=== PATIENT | female | born 1945 | race Caucasian/White ===

== ENCOUNTER 2020-10-04 14:34 | Inpatient (IN) | payer MEDICARE, BC ==
[2020-10-04] MEDS ORDERED: TYLENOL 325 MG PO ONE (14:42)
[2020-10-04] MEDS ORDERED: Sodium Chloride 0.9% 1000 ML 1,000 ML IV STA (14:42)
[2020-10-04] MEDS ORDERED: Reglan 10 MG/2 ML IV ONE (14:42)
[2020-10-04] MEDS ORDERED: BENADRYL 50 MG/ML IV ONE (14:42)
[2020-10-04] MEDS ORDERED: BENADRYL 50 MG/ML ONE (14:49)
[2020-10-04] MEDS ORDERED: TYLENOL 325 MG ONE (14:49)
[2020-10-04] MEDS ORDERED: Reglan 10 MG/2 ML ONE (14:49)
[2020-10-04] MEDS ORDERED: Sodium Chloride 0.9% 1000 ML 0 ML ONE (14:50)
[2020-10-04 15:01] LABS: Absolute Neutrophil Ct (ANC) 2.69 (1.4-6.9); BASOPHIL % 0.3 % (0.0-0.4); Basophil (Absolute #) 0.01 (0-0.4); Eosinophil % 0.5 % (0.00-5.0); Eosinophil (Absolute #) 0.02 (0-0.5); Hematocrit 28.4 % (35-47); Hemoglobin 9.9 gm/dl (12.0-16.0); Lymphocyte (Absolute #) 0.78 (1.0-4.6); Lymphocytes % 20.7 % (24.0-44.0); Mean Cell Volume 86.6 fl (78-100); Mean Corpuscular Hemoglobin 30.2 pg (26-32); Mean Corpuscular Hgb Concent. 34.9 g/dl (32-36); Mean Platelet Volume 9.7 fl (7.5-11.0); Monocyte (Absolute #) 0.26 (0.0-1.3); Monocytes % 6.9 % (0.0-12.0); Neutrophil % 71.6 % (36.0-66.0); Platelet Count 108 K/mm3 (150-450); Red Blood Count 3.28 M/mm3 (4.1-5.4); Red Cell Distribution Width 13.3 % (11.5-14.0); White Blood Count 3.8 K/mm3 (4.0-10.5)
[2020-10-04 15:13] LABS: ALBUMIN 2.8 g/dL (3.5-5.0); ANION GAP 4.7 MEQ/L (5-15); Calcium 8.5 mg/dL (8.4-10.2); Creatinine 1 1.09 mg/dL (0.52-1.04); Potassium 4.1 mmol/L (3.5-5.1); Total Protein 5.6 g/dL (6.3-8.2)
--- NOTE | 2020-10-04 15:41 | ERPHSYRPT ---
- History of Present Illness Time Seen by Provider: 10/04/20 14:45 Patient Subjective Stated Complaint: Pt c/o of having head aches for about 4 weeks and has been getting confusion, pt states that she has cirrohsis of the l iver and last took lactulose last week "Maybe". Triage Nursing Assessment: Pt brought by EMS, pt is confused and unsure why she is here, pt was confused and states that she has been having severe headaches and feels nauseaous, hypertensive, rates head pain as 8-9/10, no difficulties with strength Physician History: 75 years old female with history of intermittent headaches, cirrhosis not taking her lactulose for almost 1 week is brought in the ER with chief complaint of headache and confusion. Patient reports she has been having headache for the last 4 weeks with progressive worsening, comes and goes and today was not going away, involves the entire head, sharp in nature 8/10 intensity without any significant aggravating or relieving factors, associated with nausea but no vomiting. Patient also reports she is confused and does not know why she is in here but could be because of her elevated ammonia level as she has not taken her lactulose and last 1 week. Denies any abdominal pain otherwise. No numbness tingling or focal weakness. No fever or chills reported. Denies any sick contact. Timing/Duration: week(s), intermittent, worse Severity: moderate Modifying Factors: Improves With: rest Associated Symptoms: nausea, headaches, No vomiting, No abdominal pain, No shortness of breath, No chest pain, No fever, No loss of appetite, No syncope, No seizure Allergies/Adverse Reactions: No Known Drug Allergies Allergy (Verified 10/04/20 14:59) Home Medications: Aspirin EC 81 mg [Ecotrin 81 mg] 81 mg PO DAILY 10/04/20 [History] Clopidogrel Bisulfate 75 mg [PLAVIX 75 MG Tablet] 75 mg PO DAILY 10/04/20 [History] Duloxetine HCl [Cymbalta] 60 mg PO DAILY 10/04/20 [History] Ergocalciferol (Vitamin D2) [Vitamin D2] 50,000 unit PO Q7D 10/04/20 [History] Furosemide 20 mg [Lasix 20 mg] 20 mg PO BID 10/04/20 [History] Hydroxyzine HCl 10 mg PO BID 10/04/20 [History] Irbesartan 150 mg [Avapro 150 MG] 150 mg PO BID 10/04/20 [History] Mirabegron [Myrbetriq] 50 mg PO DAILY 10/04/20 [History] Nebivolol HCl [Bystolic] 20 mg PO BID 10/04/20 [History] Nitroglycerin 0.4 mg (Ed) [Nitrostat 0.4 MG (ED)] 0.4 mg SL UD 10/04/20 [History] Rifaximin [Xifaxan] 550 mg PO BID 10/04/20 [History] Spironolactone 25 mg PO DAILY 10/04/20 [History] carisoprodoL [Carisoprodol] 350 mg PO BID 10/04/20 [History] carvediloL [Carvedilol] 25 mg PO BID 10/04/20 [History] Hx Tetanus, Diphtheria Vaccination/Date Given: Yes (2010) Hx Influenza Vaccination/Date Given: Yes () Hx Pneumococcal Vaccination/Date Given: Yes (2010) Travel Risk - International Travel Have you traveled outside of the country in past 3 weeks: No - Coronavirus Screening Are you exhibiting any of the following symptoms?: No Close contact with a COVID-19 positive Pt in past 14-21 Days: No - Review of Systems Constitutional: Fatigue, Weakness Eyes: No Symptoms Ears, Nose, & Throat: No Symptoms Respiratory: No Symptoms Cardiac: No Symptoms Abdominal/Gastrointestinal: Nausea Genitourinary Symptoms: No Symptoms Musculoskeletal: No Symptoms Skin: No Symptoms Neurological: Headache Psychological: No Symptoms Endocrine: No Symptoms Hematologic/Lymphatic: No Symptoms Immunological/Allergic: No Symptoms - Past Medical History Pertinent Past Medical History: Yes (cirrhosis) Cardiac History: High Cholesterol, Hypertension Endocrine Medical History: Diabetes Type II, Hypothyroidism Musculoskeletal History: Arthritis GI Medical History: Cirrhosis Psycho-Social History: Depression - Past Surgical History Past Surgical History: Yes Gastrointestinal: Cholecystectomy Female Surgical History: Hysterectomy Other Surgical History: bladder tuck - Social History Smoking Status: Never smoker Exposure to second hand smoke: No Drug Use: none Patient Lives Alone: No - Nursing Vital Signs Nursing Vital Signs: Initial Vital Signs Temperature 97.5 F 10/04/20 14:42 Pulse Rate 63 10/04/20 14:42 Respiratory Rate 14 10/04/20 14:42 Blood Pressure 172/73 10/04/20 14:42 O2 Sat by Pulse Oximetry 98 10/04/20 14:42 Pain Scale Pain Intensity 6 - Physical Exam General Appearance: no apparent distress, alert Eye Exam: PERRL/EOMI, eyes nml inspection Ears, Nose, Throat Exam: normal ENT inspection, TMs normal, pharynx normal Neck Exam: normal inspection, non-tender, supple, full range of motion Respiratory Exam: normal breath sounds, lungs clear Cardiovascular Exam: regular rate/rhythm, normal heart sounds Gastrointestinal/Abdomen Exam: soft, normal bowel sounds, No tenderness Back Exam: normal inspection, normal range of motion Extremity Exam: normal inspection, normal range of motion Neurologic Exam: alert, oriented x 3, cooperative, financial solutions advisor II-XII nml as tested, nml cerebellar function, sensation nml, No normal mood/affect, No motor deficits, No sensory deficit, No facial droop, No slurred speech Skin Exam: normal color SpO2 Interpretation: normal SpO2: 98 O2 Delivery: Room Air (Adenopathy) - Course EKG Interpreted by Me: RATE (62), Sinus Rhythm, NORMAL AXIS, NORMAL INTERVALS, NORMAL QRS, Q-wave Ordered Tests: Active Orders 24 hr Category Date Time Status EKG-ER Only STAT Care 10/04/20 14:41 Active IV Insertion STAT Care 10/04/20 14:41 Active IV Insertion STAT Care 10/04/20 14:42 Active NPO (ED) STAT Care 10/04/20 14:41 Active CHEST 1 VIEW (PORTABLE) Stat Exams 10/04/20 15:46 Taken HEAD WITHOUT CONTRAST [CT] Stat Exams 10/04/20 14:42 Taken BLOOD CULTURE Stat Lab 10/04/20 15:10 Ordered BNP [NT PRO BNP] Stat Lab 10/04/20 14:48 Completed CBC W DIFF Stat Lab 10/04/20 14:48 Completed CMP Stat Lab 10/04/20 14:48 Completed CULTURE,URINE Stat Lab 10/04/20 17:43 Received Lactic Acid Stat Lab 10/04/20 14:41 Completed MAG [MAGNESIUM] Stat Lab 10/04/20 14:48 Completed TROPONIN Q3H Lab 10/04/20 15:10 Completed TROPONIN Q3H Lab 10/04/20 18:00 Ordered TROPONIN Q3H Lab 10/04/20 21:00 Ordered UA W/RFX UR CULTURE Stat Lab 10/04/20 17:43 Completed Transfer Order Routine Transfer 10/04/20 Ordered Medication Summary Generic Name Dose Route Start Last Admin Trade Name Sheridan PRN Reason Stop Dose Admin Ceftriaxone Sodium/Dextrose 1 g in 50 mls @ 100 mls/hr 10/04/20 18:02 Rocephin 1 Gm-D5w 50 Ml Bag IV 10/04/20 18:31 STAT STA Discontinued Medications Generic Name Dose Route Start Last Admin Trade Name Sheridan PRN Reason Stop Dose Admin Acetaminophen 975 mg 10/04/20 14:42 10/04/20 15:28 Tylenol 325 Mg PO 10/04/20 14:43 Not Given STAT ONE Acetaminophen Confirm 10/04/20 14:49 Tylenol 325 Mg Administered 10/04/20 14:50 Dose 975 mg .ROUTE .STK-MED ONE Diphenhydramine HCl 25 mg 10/04/20 14:42 10/04/20 15:37 Benadryl 50 Mg/Ml IV 10/04/20 14:43 25 mg STAT ONE Administration Diphenhydramine HCl Confirm 10/04/20 14:49 Benadryl 50 Mg/Ml Administered 10/04/20 14:50 Dose 50 mg .ROUTE .STK-MED ONE Sodium Chloride 1,000 mls @ 499 mls/hr 10/04/20 14:42 10/04/20 15:28 Sodium Chloride 0.9% 1000 Ml IV 10/04/20 16:42 Not Given .Q2H1M STA Sodium Chloride Confirm 10/04/20 14:50 Sodium Chloride 0.9% 1000 Ml Administered 10/04/20 14:51 Dose 1,000 mls @ ud .ROUTE .STK-MED ONE Metoclopramide HCl 10 mg 10/04/20 14:42 10/04/20 15:39 Reglan 10 Mg/2 Ml IV 10/04/20 14:43 10 mg STAT ONE Administration Metoclopramide HCl Confirm 10/04/20 14:49 Reglan 10 Mg/2 Ml Administered 10/04/20 14:50 Dose 10 mg .ROUTE .STK-MED ONE Lab/Rad Data: Laboratory Result Diagrams 10/04/20 14:48 12/25/20 14:48 Laboratory Results 10/04/20 10/04/20 10/04/20 Range/Units 17:43 16:00 15:10 WBC (4.0-10.5) K/mm3 RBC (4.1-5.4) M/mm3 Hgb (12.0-16.0) gm/dl Hct (35-47) % MCV (78-100) fl MCH (26-32) pg MCHC (32-36) g/dl RDW (11.5-14.0) % Plt Count (150-450) K/mm3 MPV (7.5-11.0) fl Gran % (36.0-66.0) % Eos # (Auto) (0-0.5) Absolute Lymphs (auto) (1.0-4.6) Absolute Monos (auto) (0.0-1.3) Lymphocytes % (24.0-44.0) % Monocytes % (0.0-12.0) % Eosinophils % (0.00-5.0) % Basophils % (0.0-0.4) % Absolute Granulocytes (1.4-6.9) Basophils # (0-0.4) Sodium (137-145) mmol/L Potassium (3.5-5.1) mmol/L Chloride (98-107) mmol/L Carbon Dioxide (22-30) mmol/L Anion Gap (5-15) MEQ/L BUN (7-17) mg/dL Creatinine (0.52-1.04) mg/dL Estimated GFR ML/MIN Glucose (74-106) mg/dL Lactic Acid (0.4-2.0) Calcium (8.4-10.2) mg/dL Magnesium (1.6-2.3) mg/dL Total Bilirubin (0.2-1.3) mg/dL AST (14-36) U/L ALT (0-35) U/L Alkaline Phosphatase (38-126) U/L Ammonia 12 (9-30) umol/L Troponin I < 0.012 (0.000-0.034) ng/mL NT-Pro-B Natriuret Pep (0-1800) pg/mL Serum Total Protein (6.3-8.2) g/dL Albumin (3.5-5.0) g/dL Urine Color GAETANO (YELLOW) Urine Appearance CLOUDY (CLEAR) Urine pH 5.0 (5-6) Ur Specific [place] 1.026 (1.005-1.025) Urine Protein >=500 (Negative) Urine Ketones NEGATIVE (NEGATIVE) Urine Blood MODERATE (0-5) Karl/ul Urine Nitrite POSITIVE (NEGATIVE) Urine Bilirubin NEGATIVE (NEGATIVE) Urine Urobilinogen 4 (0-1) mg/dL Ur Leukocyte Esterase TRACE (NEGATIVE) Urine WBC (Auto) 51-100 (0-5) /HPF Urine RBC (Auto) 11-15 (0-2) /HPF U Hyaline Cast (Auto) 11-25 (0-2) /LPF U Epithel Cells (Auto) RARE (FEW) /HPF Urine Bacteria (Auto) MANY (NEGATIVE) /HPF Urine Mucus (Auto) SLIGHT (NEGATIVE) /HPF Urine Culture Reflexed YES (NO) Urine Glucose 150 (NEGATIVE) mg/dL 10/04/20 10/04/20 10/04/20 Range/Units 14:48 14:48 14:48 WBC 3.8 L (4.0-10.5) K/mm3 RBC 3.28 L (4.1-5.4) M/mm3 Hgb 9.9 L (12.0-16.0) gm/dl Hct 28.4 L (35-47) % MCV 86.6 (78-100) fl MCH 30.2 (26-32) pg MCHC 34.9 (32-36) g/dl RDW 13.3 (11.5-14.0) % Plt Count 108 L (150-450) K/mm3 MPV 9.7 (7.5-11.0) fl Gran % 71.6 H (36.0-66.0) % Eos # (Auto) 0.02 (0-0.5) Absolute Lymphs (auto) 0.78 L (1.0-4.6) Absolute Monos (auto) 0.26 (0.0-1.3) Lymphocytes % 20.7 L (24.0-44.0) % Monocytes % 6.9 (0.0-12.0) % Eosinophils % 0.5 (0.00-5.0) % Basophils % 0.3 (0.0-0.4) % Absolute Granulocytes 2.69 (1.4-6.9) Basophils # 0.01 (0-0.4) Sodium 134 L (137-145) mmol/L Potassium 4.1 (3.5-5.1) mmol/L Chloride 105 (98-107) mmol/L Carbon Dioxide 29 (22-30) mmol/L Anion Gap 4.7 L (5-15) MEQ/L BUN 24 H (7-17) mg/dL Creatinine 1.09 H (0.52-1.04) mg/dL Estimated GFR 52.0 ML/MIN Glucose 80 (74-106) mg/dL Lactic Acid (0.4-2.0) Calcium 8.5 (8.4-10.2) mg/dL Magnesium 2.0 (1.6-2.3) mg/dL Total Bilirubin 1.00 (0.2-1.3) mg/dL AST 38 H (14-36) U/L ALT 21 (0-35) U/L Alkaline Phosphatase 135 H (38-126) U/L Ammonia (9-30) umol/L Troponin I (0.000-0.034) ng/mL NT-Pro-B Natriuret Pep 695 (0-1800) pg/mL Serum Total Protein 5.6 L (6.3-8.2) g/dL Albumin 2.8 L (3.5-5.0) g/dL Urine Color (YELLOW) Urine Appearance (CLEAR) Urine pH (5-6) Ur Specific [place] (1.005-1.025) Urine Protein (Negative) Urine Ketones (NEGATIVE) Urine Blood (0-5) Karl/ul Urine Nitrite (NEGATIVE) Urine Bilirubin (NEGATIVE) Urine Urobilinogen (0-1) mg/dL Ur Leukocyte Esterase (NEGATIVE) Urine WBC (Auto) (0-5) /HPF Urine RBC (Auto) (0-2) /HPF U Hyaline Cast (Auto) (0-2) /LPF U Epithel Cells (Auto) (FEW) /HPF Urine Bacteria (Auto) (NEGATIVE) /HPF Urine Mucus (Auto) (NEGATIVE) /HPF Urine Culture Reflexed (NO) Urine Glucose (NEGATIVE) mg/dL 12/25/20 Range/Units 14:41 WBC (4.0-10.5) K/mm3 RBC (4.1-5.4) M/mm3 Hgb (12.0-16.0) gm/dl Hct (35-47) % MCV (78-100) fl MCH (26-32) pg MCHC (32-36) g/dl RDW (11.5-14.0) % Plt Count (150-450) K/mm3 MPV (7.5-11.0) fl Gran % (36.0-66.0) % Eos # (Auto) (0-0.5) Absolute Lymphs (auto) (1.0-4.6) Absolute Monos (auto) (0.0-1.3) Lymphocytes % (24.0-44.0) % Monocytes % (0.0-12.0) % Eosinophils % (0.00-5.0) % Basophils % (0.0-0.4) % Absolute Granulocytes (1.4-6.9) Basophils # (0-0.4) Sodium (137-145) mmol/L Potassium (3.5-5.1) mmol/L Chloride (98-107) mmol/L Carbon Dioxide (22-30) mmol/L Anion Gap (5-15) MEQ/L BUN (7-17) mg/dL Creatinine (0.52-1.04) mg/dL Estimated GFR ML/MIN Glucose (74-106) mg/dL Lactic Acid 1.5 (0.4-2.0) Calcium (8.4-10.2) mg/dL Magnesium (1.6-2.3) mg/dL Total Bilirubin (0.2-1.3) mg/dL AST (14-36) U/L ALT (0-35) U/L Alkaline Phosphatase (38-126) U/L Ammonia (9-30) umol/L Troponin I (0.000-0.034) ng/mL NT-Pro-B Natriuret Pep (0-1800) pg/mL Serum Total Protein (6.3-8.2) g/dL Albumin (3.5-5.0) g/dL Urine Color (YELLOW) Urine Appearance (CLEAR) Urine pH (5-6) Ur Specific [place] (1.005-1.025) Urine Protein (Negative) Urine Ketones (NEGATIVE) Urine Blood (0-5) Karl/ul Urine Nitrite (NEGATIVE) Urine Bilirubin (NEGATIVE) Urine Urobilinogen (0-1) mg/dL Ur Leukocyte Esterase (NEGATIVE) Urine WBC (Auto) (0-5) /HPF Urine RBC (Auto) (0-2) /HPF U Hyaline Cast (Auto) (0-2) /LPF U Epithel Cells (Auto) (FEW) /HPF Urine Bacteria (Auto) (NEGATIVE) /HPF Urine Mucus (Auto) (NEGATIVE) /HPF Urine Culture Reflexed (NO) Urine Glucose (NEGATIVE) mg/dL - Progress Progress: improved, re-examined Progress Note: 75 years old with history of cirrhosis, congestive heart failure is evaluated for headache/confusion intermittently with generalized weakness fatigue/lethargy. Patient has nonfocal neuro exam throughout stay in the ER. She is given small bolus of fluid and Reglan/Benadryl, on reevaluation her headache is better. CT head is negative. Chest x-ray showed bilateral infiltrates with some effusion on the left. No comparison available, official report is pending. Started on antibiotics. She has normal ammonia level. She has mild acute kidney injury and will continue with fluids. She does have UTI and antibiotics for pneumonia would cover it as well. This could be the reason for her generalized weakness/confusion. Discussed with Dr. Altman and patient is admitted for observation. 10/04/20 18:14 Discussed with : Alex Counseled pt/family regarding: lab results, diagnosis, rad results - Departure Departure Disposition: Observation Clinical Impression: Acute UTI, Encephalopathy acute, General weakness, JANAK (acute kidney injury) Headache Qualifiers: Headache type: unspecified Headache chronicity pattern: unspecified pattern Intractability: not intractable Qualified Code(s): R51.9 - Headache, unspecified Pneumonia Qualifiers: Pneumonia type: due to unspecified organism Laterality: bilateral Lung location: lower lobe of lung Qualified Code(s): J18.9 - Pneumonia, unspecified organism Condition: Stable Critical Care Time: Yes Critical Care Time(excluding separately billable procedures): Critical 30-74 mins Referrals: ROSITA SMITH MD [Primary Care Provider] -
[2020-10-04 17:57] LABS: Appearance CLOUDY (CLEAR); Bacteria MANY /HPF (NEGATIVE); Bilirubin NEGATIVE (NEGATIVE); Blood MODERATE Ery/ul (0-5); Epithelial Cells RARE /HPF (FEW); Glucose 150 mg/dL (NEGATIVE); Ketones NEGATIVE (NEGATIVE); Leukocyte Esterase TRACE (NEGATIVE); Mucus SLIGHT /HPF (NEGATIVE); Nitrite POSITIVE (NEGATIVE); Protein,Urine Dip >=500 (Negative); Specific Gravity 1.026 (1.005-1.025); Urobilinogen 4 mg/dL (0-1); WBC 51-100 /HPF (0-5)
[2020-10-04] MEDS ORDERED: ROCEPHIN 1 Gm-D5w 50 ml Bag** 1 G/50 ML IVPB IV STA (18:02)
[2020-10-04] MEDS ORDERED: ZITHROMAX IV 500 MG*** 0 MG in Sodium Chloride 0.9% 250 ML 250 ML IV ONE (18:13)
--- NOTE | 2020-10-04 18:18 | XRAY ---
Indication: Headache. Comparison: March 03, 2011. Portable chest again demonstrates left base infiltrate/atelectasis/effusion with new borderline cardiomegaly. Bony thorax intact again with osteopenia and degenerative changes.
--- NOTE | 2020-10-04 18:20 | XRAY ---
Indication: Left frontal headache. Multiple contiguous axial images obtained through the head without contrast. Comparison: None Age-appropriate global atrophy and minimal perivascular degenerative micro-ischemia bilaterally. No acute intracranial hemorrhage, abnormal extra-axial fluid collection, or mass effect. Fourth ventricle is midline without hydrocephalus. Bony calvarium intact. Visualized paranasal sinuses and mastoid air cells are clear. Impression: Nonacute senile brain. Comment: Preliminary interpretation was made by [facility]. No critical discrepancy.
[2020-10-04] MEDS ORDERED: ROCEPHIN 1 Gm-D5w 50 ml Bag** 1 G/50 ML IVPB IV ONE (18:26)
[2020-10-04] MEDS ORDERED: DUONEB 0.5-3 MG/3 ml Neb IH PRN (18:39)
[2020-10-04] MEDS ORDERED: Zofran 4 MG/2 ML VIAL IV PRN (18:39)
[2020-10-04] MEDS ORDERED: DUONEB 0.5-3 MG/3 ml Neb IH SCH (19:00)
[2020-10-04] MEDS ORDERED: Nitrostat 0.4 MG Tablet SL PRN (21:08)
[2020-10-04] MEDS ORDERED: Xifaxan 200 MG PO PRN (21:09)
[2020-10-04] MEDS ORDERED: LASIX 20 MG ONE (21:21)
[2020-10-04] MEDS: COREG 12.5 MG PO SCH (21:38)
[2020-10-04] MEDS: Bystolic 5 MG PO SCH (21:38)
[2020-10-04] MEDS: Avapro 150 MG PO SCH (21:38)
[2020-10-04] MEDS: Lantus Insulin SQ SCH (21:39)
[2020-10-04] MEDS: LASIX 20 MG PO SCH (21:41)
[2020-10-04] MEDS: TYLENOL 325 MG PO PRN (21:44)
[2020-10-04] MEDS ORDERED: Zithromax 500 MG/ 250 ML NaCl Premix 500 MG/250 ML IVPB IV SCH (22:00)
[2020-10-04] MEDS ORDERED: ATARAX 25 MG PO ONE (22:00)
[2020-10-04] MEDS ORDERED: SOMA 350 MG PO SCH (22:00)
[2020-10-05 06:29] LABS: Absolute Neutrophil Ct (ANC) 2.15 (1.4-6.9); BASOPHIL % 0.3 % (0.0-0.4); Basophil (Absolute #) 0.01 (0-0.4); Eosinophil % 0.9 % (0.00-5.0); Eosinophil (Absolute #) 0.03 (0-0.5); Hematocrit 26.3 % (35-47); Hemoglobin 9.1 gm/dl (12.0-16.0); Lymphocytes % 24.9 % (24.0-44.0); Mean Cell Volume 86.5 fl (78-100); Mean Corpuscular Hemoglobin 29.9 pg (26-32); Mean Corpuscular Hgb Concent. 34.6 g/dl (32-36); Mean Platelet Volume 10.1 fl (7.5-11.0); Monocyte (Absolute #) 0.22 (0.0-1.3); Monocytes % 6.9 % (0.0-12.0); Platelet Count 101 K/mm3 (150-450); Red Blood Count 3.04 M/mm3 (4.1-5.4); Red Cell Distribution Width 13.5 % (11.5-14.0); White Blood Count 3.2 K/mm3 (4.0-10.5)
[2020-10-05 06:41] LABS: ALBUMIN 2.2 g/dL (3.5-5.0); ANION GAP 4.1 MEQ/L (5-15); BILIRUBIN,TOTAL 0.6 mg/dL (0.2-1.3); Calcium 7.9 mg/dL (8.4-10.2); Creatinine 1 1.04 mg/dL (0.52-1.04); EST GLOMERULAR FILTRATION RATE 54.9 ML/MIN; Potassium 3.8 mmol/L (3.5-5.1); Total Protein 4.6 g/dL (6.3-8.2)
[2020-10-05] MEDS: Sodium Chloride 0.9% 1000 ML 1,000 ML IV SCH (09:56)
[2020-10-05] MEDS ORDERED: Zithromax 500 MG/ 250 ML NaCl Premix 500 MG/250 ML IVPB IV SCH (10:00)
[2020-10-05] MEDS: Bystolic 5 MG PO SCH ×2 (11:22→22:27)
[2020-10-05] MEDS: COREG 12.5 MG PO SCH ×2 (11:22→22:27)
[2020-10-05] MEDS: Avapro 150 MG PO SCH ×2 (11:22→22:27)
[2020-10-05] MEDS: PROTONIX 40 MG IV IV SCH (11:24)
--- NOTE | 2020-10-05 12:02 | PCM.HP ---
History of Present Illness - Chief Complaint Chief Complaint: UTI, sec AMS, JANAK History of Present Illness: is a 75 year old female who presented to ER with c/o headache and nausea and confusion. PMHx - DM2 followed by Dr Agrawal,CAD ,heart murmur, HTN followed by Dr Donnelly, Cirrhosis/nonalcoholic/unknown [facility] States not taking lactulose. Recurrent UTIs followed by Dr Rivera/LARRY Tompkins,had a recent ER visit at [facility] for same headache and was dg UTI and given antibiotics. Medications & Allergies Home Medications: Home Medication List Aspirin EC 81 mg [Ecotrin 81 mg] 81 mg PO DAILY 10/04/20 [History Confirmed 10/04/20] Clopidogrel Bisulfate 75 mg [PLAVIX 75 MG Tablet] 75 mg PO DAILY 10/04/20 [History Confirmed 10/04/20] Duloxetine HCl [Cymbalta] 60 mg PO DAILY 10/04/20 [History Confirmed 10/04/20] Ergocalciferol (Vitamin D2) [Vitamin D2] 50,000 unit PO Q7D 10/04/20 [History Confirmed 10/04/20] Furosemide 20 mg [Lasix 20 mg] 20 mg PO BID 10/04/20 [History Confirmed 10/04/20] Hydroxyzine HCl 10 mg PO BID 10/04/20 [History Confirmed 10/04/20] Insulin Aspart [Novolog] 20 unit SQ BREAKFAST 10/04/20 [History Confirmed 10/04/20] Insulin Aspart [Novolog] 26 unit SQ DINNER 10/04/20 [History Confirmed 10/04/20] Insulin Degludec [Tresiba] 42 unit SQ HS 10/04/20 [History Confirmed 10/04/20] Irbesartan 150 mg [Avapro 150 MG] 150 mg PO BID 10/04/20 [History Confirmed 10/04/20] Mirabegron [Myrbetriq] 50 mg PO DAILY 10/04/20 [History Confirmed 10/04/20] Nebivolol HCl [Bystolic] 20 mg PO BID 10/04/20 [History Confirmed 10/04/20] Nitroglycerin 0.4 mg (Ed) [Nitrostat 0.4 MG (ED)] 0.4 mg SL UD 10/04/20 [History Confirmed 10/04/20] Rifaximin [Xifaxan] 550 mg PO BID 10/04/20 [History Confirmed 10/04/20] Spironolactone 25 mg PO DAILY 10/04/20 [History Confirmed 10/04/20] carisoprodoL [Carisoprodol] 350 mg PO BID 10/04/20 [History Confirmed 10/04/20] carvediloL [Carvedilol] 25 mg PO BID 10/04/20 [History Confirmed 10/04/20] Allergies/Adverse Reactions: Allergies Allergy/AdvReac Type Severity Reaction Status Date / Time No Known Drug Allergies Allergy Verified 10/04/20 20:18 - Past Medical History Past Medical History: Yes (cirrhosis) Neurological History: No Pertinent History ENT History: Cataracts Cardiac History: Angina, Coronary Artery Disease, High Cholesterol, Hypertension Respiratory History: COPD Endocrine Medical History: Diabetes Type II, Hypothyroidism Musculoskelatal History: Arthritis, Osteoarthritis GI Medical History: Cirrhosis, GERD History: Renal Disease Pyscho-Social History: Anxiety, Depression, Panic Disorder - Female History Are you now?: No - Past Surgical History Past Surgical History: Yes Cardiac History: Cardiac Catheterization, Cardiac Stent GI Surgical History: Cholecystectomy, Other Female Surgical History: Hysterectomy Other Surgical History: bladder tuck - Social History Smoking Status: Never smoker Exposure to second hand smoke: No Alcohol: None Drug Use: none - Physical Exam Vital Signs: Vital Signs - 24 hr Temp Pulse Resp BP Pulse Ox 10/05/20 07:40 68 18 94 L 10/05/20 07:13 98.4 F 66 18 147/67 94 L 10/05/20 04:00 98.0 F 67 18 135/63 96 10/04/20 23:44 97.4 F 69 18 110/59 96 10/04/20 20:28 59 L 18 94 L 10/04/20 19:48 96.7 F 57 L 17 159/68 94 L 10/04/20 19:40 96.7 F 57 L 17 159/68 94 L 10/04/20 18:16 98 10/04/20 17:43 60 18 183/77 96 10/04/20 16:24 60 21 175/79 96 10/04/20 14:42 97.5 F 63 14 172/73 98 Results - Labs Lab/Micro Results: Lab Results-Last 24 Hours 10/04/20 10/04/20 10/04/20 Range/Units 14:41 14:48 14:48 WBC 3.8 L (4.0-10.5) K/mm3 RBC 3.28 L (4.1-5.4) M/mm3 Hgb 9.9 L (12.0-16.0) gm/dl Hct 28.4 L (35-47) % MCV 86.6 (78-100) fl MCH 30.2 (26-32) pg MCHC 34.9 (32-36) g/dl RDW 13.3 (11.5-14.0) % Plt Count 108 L (150-450) K/mm3 MPV 9.7 (7.5-11.0) fl Gran % 71.6 H (36.0-66.0) % Eos # (Auto) 0.02 (0-0.5) Absolute Lymphs (auto) 0.78 L (1.0-4.6) Absolute Monos (auto) 0.26 (0.0-1.3) Lymphocytes % 20.7 L (24.0-44.0) % Monocytes % 6.9 (0.0-12.0) % Eosinophils % 0.5 (0.00-5.0) % Basophils % 0.3 (0.0-0.4) % Absolute Granulocytes 2.69 (1.4-6.9) Basophils # 0.01 (0-0.4) Sodium 134 L (137-145) mmol/L Potassium 4.1 (3.5-5.1) mmol/L Chloride 105 (98-107) mmol/L Carbon Dioxide 29 (22-30) mmol/L Anion Gap 4.7 L (5-15) MEQ/L BUN 24 H (7-17) mg/dL Creatinine 1.09 H (0.52-1.04) mg/dL Estimated GFR 52.0 ML/MIN Glucose 80 (74-106) mg/dL POC Glucometer (74 to 106) mg/dL Lactic Acid 1.5 (0.4-2.0) Calcium 8.5 (8.4-10.2) mg/dL Magnesium (1.6-2.3) mg/dL Total Bilirubin 1.00 (0.2-1.3) mg/dL AST 38 H (14-36) U/L ALT 21 (0-35) U/L Alkaline Phosphatase 135 H (38-126) U/L Ammonia (9-30) umol/L Troponin I (0.000-0.034) ng/mL NT-Pro-B Natriuret Pep (0-1800) pg/mL Serum Total Protein 5.6 L (6.3-8.2) g/dL Albumin 2.8 L (3.5-5.0) g/dL Urine Color (YELLOW) Urine Appearance (CLEAR) Urine pH (5-6) Ur Specific [place] (1.005-1.025) Urine Protein (Negative) Urine Ketones (NEGATIVE) Urine Blood (0-5) Karl/ul Urine Nitrite (NEGATIVE) Urine Bilirubin (NEGATIVE) Urine Urobilinogen (0-1) mg/dL Ur Leukocyte Esterase (NEGATIVE) Urine WBC (Auto) (0-5) /HPF Urine RBC (Auto) (0-2) /HPF U Hyaline Cast (Auto) (0-2) /LPF U Epithel Cells (Auto) (FEW) /HPF Urine Bacteria (Auto) (NEGATIVE) /HPF Urine Mucus (Auto) (NEGATIVE) /HPF Urine Culture Reflexed (NO) Urine Glucose (NEGATIVE) mg/dL 10/04/20 10/04/20 10/04/20 Range/Units 14:48 15:10 16:00 WBC (4.0-10.5) K/mm3 RBC (4.1-5.4) M/mm3 Hgb (12.0-16.0) gm/dl Hct (35-47) % MCV (78-100) fl MCH (26-32) pg MCHC (32-36) g/dl RDW (11.5-14.0) % Plt Count (150-450) K/mm3 MPV (7.5-11.0) fl Gran % (36.0-66.0) % Eos # (Auto) (0-0.5) Absolute Lymphs (auto) (1.0-4.6) Absolute Monos (auto) (0.0-1.3) Lymphocytes % (24.0-44.0) % Monocytes % (0.0-12.0) % Eosinophils % (0.00-5.0) % Basophils % (0.0-0.4) % Absolute Granulocytes (1.4-6.9) Basophils # (0-0.4) Sodium (137-145) mmol/L Potassium (3.5-5.1) mmol/L Chloride (98-107) mmol/L Carbon Dioxide (22-30) mmol/L Anion Gap (5-15) MEQ/L BUN (7-17) mg/dL Creatinine (0.52-1.04) mg/dL Estimated GFR ML/MIN Glucose (74-106) mg/dL POC Glucometer (74 to 106) mg/dL Lactic Acid (0.4-2.0) Calcium (8.4-10.2) mg/dL Magnesium 2.0 (1.6-2.3) mg/dL Total Bilirubin (0.2-1.3) mg/dL AST (14-36) U/L ALT (0-35) U/L Alkaline Phosphatase (38-126) U/L Ammonia 12 (9-30) umol/L Troponin I < 0.012 (0.000-0.034) ng/mL NT-Pro-B Natriuret Pep 695 (0-1800) pg/mL Serum Total Protein (6.3-8.2) g/dL Albumin (3.5-5.0) g/dL Urine Color (YELLOW) Urine Appearance (CLEAR) Urine pH (5-6) Ur Specific [place] (1.005-1.025) Urine Protein (Negative) Urine Ketones (NEGATIVE) Urine Blood (0-5) Karl/ul Urine Nitrite (NEGATIVE) Urine Bilirubin (NEGATIVE) Urine Urobilinogen (0-1) mg/dL Ur Leukocyte Esterase (NEGATIVE) Urine WBC (Auto) (0-5) /HPF Urine RBC (Auto) (0-2) /HPF U Hyaline Cast (Auto) (0-2) /LPF U Epithel Cells (Auto) (FEW) /HPF Urine Bacteria (Auto) (NEGATIVE) /HPF Urine Mucus (Auto) (NEGATIVE) /HPF Urine Culture Reflexed (NO) Urine Glucose (NEGATIVE) mg/dL 10/04/20 10/04/20 10/04/20 Range/Units 17:43 18:19 20:57 WBC (4.0-10.5) K/mm3 RBC (4.1-5.4) M/mm3 Hgb (12.0-16.0) gm/dl Hct (35-47) % MCV (78-100) fl MCH (26-32) pg MCHC (32-36) g/dl RDW (11.5-14.0) % Plt Count (150-450) K/mm3 MPV (7.5-11.0) fl Gran % (36.0-66.0) % Eos # (Auto) (0-0.5) Absolute Lymphs (auto) (1.0-4.6) Absolute Monos (auto) (0.0-1.3) Lymphocytes % (24.0-44.0) % Monocytes % (0.0-12.0) % Eosinophils % (0.00-5.0) % Basophils % (0.0-0.4) % Absolute Granulocytes (1.4-6.9) Basophils # (0-0.4) Sodium (137-145) mmol/L Potassium (3.5-5.1) mmol/L Chloride (98-107) mmol/L Carbon Dioxide (22-30) mmol/L Anion Gap (5-15) MEQ/L BUN (7-17) mg/dL Creatinine (0.52-1.04) mg/dL Estimated GFR ML/MIN Glucose (74-106) mg/dL POC Glucometer 82 (74 to 106) mg/dL Lactic Acid (0.4-2.0) Calcium (8.4-10.2) mg/dL Magnesium (1.6-2.3) mg/dL Total Bilirubin (0.2-1.3) mg/dL AST (14-36) U/L ALT (0-35) U/L Alkaline Phosphatase (38-126) U/L Ammonia (9-30) umol/L Troponin I < 0.012 (0.000-0.034) ng/mL NT-Pro-B Natriuret Pep (0-1800) pg/mL Serum Total Protein (6.3-8.2) g/dL Albumin (3.5-5.0) g/dL Urine Color GAETANO (YELLOW) Urine Appearance CLOUDY (CLEAR) Urine pH 5.0 (5-6) Ur Specific [place] 1.026 (1.005-1.025) Urine Protein >=500 (Negative) Urine Ketones NEGATIVE (NEGATIVE) Urine Blood MODERATE (0-5) Karl/ul Urine Nitrite POSITIVE (NEGATIVE) Urine Bilirubin NEGATIVE (NEGATIVE) Urine Urobilinogen 4 (0-1) mg/dL Ur Leukocyte Esterase TRACE (NEGATIVE) Urine WBC (Auto) 51-100 (0-5) /HPF Urine RBC (Auto) 11-15 (0-2) /HPF U Hyaline Cast (Auto) 11-25 (0-2) /LPF U Epithel Cells (Auto) RARE (FEW) /HPF Urine Bacteria (Auto) MANY (NEGATIVE) /HPF Urine Mucus (Auto) SLIGHT (NEGATIVE) /HPF Urine Culture Reflexed YES (NO) Urine Glucose 150 (NEGATIVE) mg/dL 10/05/20 10/05/20 10/05/20 Range/Units 05:42 05:42 07:06 WBC 3.2 L (4.0-10.5) K/mm3 RBC 3.04 L (4.1-5.4) M/mm3 Hgb 9.1 L (12.0-16.0) gm/dl Hct 26.3 L (35-47) % MCV 86.5 (78-100) fl MCH 29.9 (26-32) pg MCHC 34.6 (32-36) g/dl RDW 13.5 (11.5-14.0) % Plt Count 101 L (150-450) K/mm3 MPV 10.1 (7.5-11.0) fl Gran % 67.0 H (36.0-66.0) % Eos # (Auto) 0.03 (0-0.5) Absolute Lymphs (auto) 0.80 L (1.0-4.6) Absolute Monos (auto) 0.22 (0.0-1.3) Lymphocytes % 24.9 (24.0-44.0) % Monocytes % 6.9 (0.0-12.0) % Eosinophils % 0.9 (0.00-5.0) % Basophils % 0.3 (0.0-0.4) % Absolute Granulocytes 2.15 (1.4-6.9) Basophils # 0.01 (0-0.4) Sodium 134 L (137-145) mmol/L Potassium 3.8 (3.5-5.1) mmol/L Chloride 107 (98-107) mmol/L Carbon Dioxide 27 (22-30) mmol/L Anion Gap 4.1 L (5-15) MEQ/L BUN 25 H (7-17) mg/dL Creatinine 1.04 (0.52-1.04) mg/dL Estimated GFR 54.9 ML/MIN Glucose 91 (74-106) mg/dL POC Glucometer 85 (74 to 106) mg/dL Lactic Acid (0.4-2.0) Calcium 7.9 L (8.4-10.2) mg/dL Magnesium (1.6-2.3) mg/dL Total Bilirubin 0.60 (0.2-1.3) mg/dL AST 41 H (14-36) U/L ALT 20 (0-35) U/L Alkaline Phosphatase 113 (38-126) U/L Ammonia (9-30) umol/L Troponin I (0.000-0.034) ng/mL NT-Pro-B Natriuret Pep (0-1800) pg/mL Serum Total Protein 4.6 L (6.3-8.2) g/dL Albumin 2.2 L (3.5-5.0) g/dL Urine Color (YELLOW) Urine Appearance (CLEAR) Urine pH (5-6) Ur Specific [place] (1.005-1.025) Urine Protein (Negative) Urine Ketones (NEGATIVE) Urine Blood (0-5) Karl/ul Urine Nitrite (NEGATIVE) Urine Bilirubin (NEGATIVE) Urine Urobilinogen (0-1) mg/dL Ur Leukocyte Esterase (NEGATIVE) Urine WBC (Auto) (0-5) /HPF Urine RBC (Auto) (0-2) /HPF U Hyaline Cast (Auto) (0-2) /LPF U Epithel Cells (Auto) (FEW) /HPF Urine Bacteria (Auto) (NEGATIVE) /HPF Urine Mucus (Auto) (NEGATIVE) /HPF Urine Culture Reflexed (NO) Urine Glucose (NEGATIVE) mg/dL Microbiology 10/04/20 17:43 Urine Culture - Preliminary Urine, Void GRAM NEGATIVE ID AND SENSITIVITY PENDING Accuchecks Date 10/05/20 Time 07:06 - Radiology Impressions Radiology Exams & Impressions: Radiology Procedures Category Date Time Status CHEST 1 VIEW (PORTABLE) Stat Exams 10/04/20 15:46 Completed HEAD WITHOUT CONTRAST [CT] Stat Exams 10/04/20 14:42 Completed - Other Procedures and Tests Respiratory Therapy 10/04/20 20:23 Respiratory Therapy Assessment DAILY
[2020-10-05] MEDS: HUMALOG SQ PRN ×3 (12:17→22:30)
[2020-10-05] MEDS ORDERED: SOMA 350 MG PO PRN (14:30)
[2020-10-05] MEDS: PLAVIX 75 MG Tablet PO SCH (17:35)
[2020-10-05] MEDS: LASIX 20 MG PO SCH (17:35)
[2020-10-05] MEDS: Cymbalta 30 MG Capsule PO SCH (17:35)
[2020-10-05] MEDS: ECOTRIN 81 MG PO SCH (17:35)
[2020-10-05] MEDS: ROCEPHIN 1 Gm-D5w 50 ml Bag** 1 G/50 ML IVPB IV SCH (17:36)
[2020-10-05] MEDS: Aldactone 25 MG PO SCH (17:36)
[2020-10-05] MEDS ORDERED: NON-FORMULARY ITEM (Hydroxyzine Hcl [Hydroxyzine Hcl] 10 MG) PO SCH (22:00)
[2020-10-05] MEDS: Zithromax 500 MG/ 250 ML NaCl Premix 500 MG/250 ML IVPB IV SCH (22:27)
[2020-10-05] MEDS: ATARAX 25 MG PO SCH (22:28)
[2020-10-05] MEDS: TYLENOL 325 MG PO PRN (22:32)
[2020-10-05] MEDS: Lantus Insulin SQ SCH (22:34)
[2020-10-06] MEDS: Sodium Chloride 0.9% 1000 ML 1,000 ML IV SCH ×2 (00:15→13:29)
[2020-10-06] MEDS: TYLENOL 325 MG PO PRN ×2 (08:00→21:38)
[2020-10-06] MEDS: Aldactone 25 MG PO SCH (09:03)
[2020-10-06] MEDS: PROTONIX 40 MG IV IV SCH (09:03)
[2020-10-06] MEDS: PLAVIX 75 MG Tablet PO SCH (09:03)
[2020-10-06] MEDS: Bystolic 5 MG PO SCH ×2 (09:03→21:24)
[2020-10-06] MEDS: Cymbalta 30 MG Capsule PO SCH (09:03)
[2020-10-06] MEDS: Avapro 150 MG PO SCH ×2 (09:04→21:24)
[2020-10-06] MEDS: LASIX 20 MG PO SCH ×2 (09:04→16:58)
[2020-10-06] MEDS: ATARAX 25 MG PO SCH ×2 (09:04→21:25)
[2020-10-06] MEDS: COREG 12.5 MG PO SCH ×2 (09:05→21:24)
[2020-10-06] MEDS: ECOTRIN 81 MG PO SCH (09:05)
[2020-10-06] MEDS ORDERED: NON-FORMULARY ITEM (Duloxetine Hcl [Cymbalta] 60 MG) PO SCH (10:00)
[2020-10-06] MEDS ORDERED: APRESOLINE 20 MG/ML INJ IV ONE ×2 (11:56→16:36)
[2020-10-06] MEDS: HUMALOG SQ PRN ×3 (12:08→21:26)
[2020-10-06] MEDS ORDERED: Lasix 20 MG/2 ML ONE (16:45)
[2020-10-06] MEDS ORDERED: Lasix 20 MG/2 ML IV ONE (16:49)
--- NOTE | 2020-10-06 17:26 | PCM.NOTE ---
Date and Time: 10/06/201723 Subjective Assessment: Patient has had elevated B/P today and was started on hydralazine. IV NS was discontinued and 1 dose of Lasix IV given. Urine culture resulted E.Coli OBJECTIVE DATA Vital Signs: Vital Signs - 24 hr Temp Pulse Resp BP Pulse Ox 10/06/20 17:00 98.3 F 72 18 212/82 95 10/06/20 13:33 64 16 123/58 10/06/20 12:00 98.5 F 68 22 208/81 97 10/06/20 07:56 98.2 F 69 18 198/93 96 10/06/20 07:51 68 18 93 L 10/06/20 04:00 99.2 F 68 18 175/65 94 L 10/05/20 23:45 99.4 F 60 18 174/79 96 10/05/20 19:44 99.4 F 69 17 178/73 96 10/05/20 19:40 68 18 95 Pain Assessment - Last Documented Pain Intensity 7 Pain Scale Used 0-10 Pain Scale Intake and Output: Intake & Output 10/04/20 10/05/20 10/06/20 10/07/20 11:59 11:59 11:59 11:59 Intake Total 2266 2866 240 Output Total 300 550 Balance 1966 2316 240 Weight 79.1 kg 79.6 kg Lab Results: Lab Results-Last 24 Hours 10/05/20 10/06/20 10/06/20 Range/Units 20:05 06:39 11:14 POC Glucometer 329 H 99 228 H (74 to 106) mg/dL 10/06/20 Range/Units 16:29 POC Glucometer 310 H (74 to 106) mg/dL Assessment/Plan (1) Hypertensive urgency Current Visit: Yes Status: Acute Assessment & Plan: hydralazine given ,IV NS discontinued,one dose IV Lasix given Code(s): I16.0 - HYPERTENSIVE URGENCY (2) Acute UTI Current Visit: Yes Status: Acute Assessment & Plan: E.Coli per culture.d/c Zithromax,continue Ceftriaxone per Sens. Code(s): N39.0 - URINARY TRACT INFECTION, SITE NOT SPECIFIED
[2020-10-06] MEDS: ROCEPHIN 1 Gm-D5w 50 ml Bag** 1 G/50 ML IVPB IV SCH (17:42)
[2020-10-06 19:26] LABS: AMYLASE 37 U/L (30-110); LIPASE 79 U/L (23-300)
[2020-10-06] MEDS: Zithromax 500 MG/ 250 ML NaCl Premix 500 MG/250 ML IVPB IV SCH (21:23)
[2020-10-06] MEDS: Lantus Insulin SQ SCH (21:25)
[2020-10-06] MEDS: Sodium Chloride 0.9% 10 ML FLUSH Syringe IV SCH (21:25)
[2020-10-06] MEDS: Mylicon 80MG PO SCH (21:28)
[2020-10-07] MEDS: TYLENOL 325 MG PO PRN (04:53)
[2020-10-07 04:54] LABS: Hematocrit 30.7 % (35-47); Hemoglobin 10.7 gm/dl (12.0-16.0); Mean Cell Volume 88.2 fl (78-100); Mean Corpuscular Hemoglobin 30.7 pg (26-32); Mean Corpuscular Hgb Concent. 34.9 g/dl (32-36); Mean Platelet Volume 9.9 fl (7.5-11.0); Platelet Count 109 K/mm3 (150-450); Red Blood Count 3.48 M/mm3 (4.1-5.4); Red Cell Distribution Width 13.8 % (11.5-14.0); White Blood Count 3.5 K/mm3 (4.0-10.5)
[2020-10-07 05:09] LABS: ALBUMIN 2.5 g/dL (3.5-5.0); ANION GAP 4.8 MEQ/L (5-15); BILIRUBIN,TOTAL 0.6 mg/dL (0.2-1.3); Calcium 8.5 mg/dL (8.4-10.2); Creatinine 1 1.05 mg/dL (0.52-1.04); EST GLOMERULAR FILTRATION RATE 54.3 ML/MIN; Total Protein 5.3 g/dL (6.3-8.2)
[2020-10-07] MEDS: Sodium Chloride 0.9% 10 ML FLUSH Syringe IV SCH ×3 (05:51→22:22)
[2020-10-07] MEDS ORDERED: ATARAX 25 MG PO SCH (06:00)
[2020-10-07] MEDS ORDERED: Apresoline 25 MG TABLET PO SCH (06:15)
--- NOTE | 2020-10-07 08:17 | PCM.NOTE ---
Date and Time: 10/07/20813 Subjective Assessment: patient reports she is feeling a lot better, she is alert and clear and answering questions appropriately. she denies pain other than having some headache related to her bp Objective Exam General Appearance: no apparent distress, alert Skin Exam: normal color, warm, dry Respiratory Exam: normal breath sounds, lungs clear, No respiratory distress Cardiovascular Exam: regular rate/rhythm, normal heart sounds Gastrointestinal/Abdomen Exam: soft, No tenderness, No mass Extremity Exam: normal inspection, normal range of motion OBJECTIVE DATA Vital Signs: Vital Signs - 24 hr Temp Pulse Resp BP Pulse Ox 10/07/20 07:11 70 18 96 10/07/20 04:00 97.8 F 67 20 184/70 95 10/07/20 00:00 97.8 F 63 20 147/67 95 10/06/20 20:20 98.8 F 67 20 170/64 95 10/06/20 19:36 66 18 154/66 10/06/20 17:00 98.3 F 72 18 212/82 95 10/06/20 13:33 64 16 123/58 10/06/20 12:00 98.5 F 68 22 208/81 97 Pain Assessment - Last Documented Pain Intensity 5 Pain Scale Used 0-10 Pain Scale Intake and Output: Intake & Output 10/04/20 10/05/20 10/06/20 10/07/20 11:59 11:59 11:59 11:59 Intake Total 2266 2866 1370 Output Total 300 550 200 Balance 1966 2316 1170 Weight 79.1 kg 79.6 kg Lab Results: Lab Results-Last 24 Hours 10/06/20 10/06/20 10/06/20 Range/Units 11:14 16:29 19:12 WBC (4.0-10.5) K/mm3 RBC (4.1-5.4) M/mm3 Hgb (12.0-16.0) gm/dl Hct (35-47) % MCV (78-100) fl MCH (26-32) pg MCHC (32-36) g/dl RDW (11.5-14.0) % Plt Count (150-450) K/mm3 MPV (7.5-11.0) fl Sodium (137-145) mmol/L Potassium (3.5-5.1) mmol/L Chloride (98-107) mmol/L Carbon Dioxide (22-30) mmol/L Anion Gap (5-15) MEQ/L BUN (7-17) mg/dL Creatinine (0.52-1.04) mg/dL Estimated GFR ML/MIN Glucose (74-106) mg/dL POC Glucometer 228 H 310 H (74 to 106) mg/dL Calcium (8.4-10.2) mg/dL Total Bilirubin (0.2-1.3) mg/dL AST (14-36) U/L ALT (0-35) U/L Alkaline Phosphatase (38-126) U/L Ammonia 14 (9-30) umol/L Serum Total Protein (6.3-8.2) g/dL Albumin (3.5-5.0) g/dL Amylase (30-110) U/L Lipase (23-300) U/L 10/06/20 10/06/20 10/07/20 Range/Units 19:12 21:03 04:35 WBC 3.5 L (4.0-10.5) K/mm3 RBC 3.48 L (4.1-5.4) M/mm3 Hgb 10.7 L (12.0-16.0) gm/dl Hct 30.7 L (35-47) % MCV 88.2 (78-100) fl MCH 30.7 (26-32) pg MCHC 34.9 (32-36) g/dl RDW 13.8 (11.5-14.0) % Plt Count 109 L (150-450) K/mm3 MPV 9.9 (7.5-11.0) fl Sodium (137-145) mmol/L Potassium (3.5-5.1) mmol/L Chloride (98-107) mmol/L Carbon Dioxide (22-30) mmol/L Anion Gap (5-15) MEQ/L BUN (7-17) mg/dL Creatinine (0.52-1.04) mg/dL Estimated GFR ML/MIN Glucose (74-106) mg/dL POC Glucometer 181 H (74 to 106) mg/dL Calcium (8.4-10.2) mg/dL Total Bilirubin (0.2-1.3) mg/dL AST (14-36) U/L ALT (0-35) U/L Alkaline Phosphatase (38-126) U/L Ammonia (9-30) umol/L Serum Total Protein (6.3-8.2) g/dL Albumin (3.5-5.0) g/dL Amylase 37 (30-110) U/L Lipase 79 (23-300) U/L 10/07/20 10/07/20 Range/Units 04:35 08:07 WBC (4.0-10.5) K/mm3 RBC (4.1-5.4) M/mm3 Hgb (12.0-16.0) gm/dl Hct (35-47) % MCV (78-100) fl MCH (26-32) pg MCHC (32-36) g/dl RDW (11.5-14.0) % Plt Count (150-450) K/mm3 MPV (7.5-11.0) fl Sodium 136 L (137-145) mmol/L Potassium 4.0 (3.5-5.1) mmol/L Chloride 109 H (98-107) mmol/L Carbon Dioxide 27 (22-30) mmol/L Anion Gap 4.8 L (5-15) MEQ/L BUN 26 H (7-17) mg/dL Creatinine 1.05 H (0.52-1.04) mg/dL Estimated GFR 54.3 ML/MIN Glucose 139 H (74-106) mg/dL POC Glucometer 117 H (74 to 106) mg/dL Calcium 8.5 (8.4-10.2) mg/dL Total Bilirubin 0.60 (0.2-1.3) mg/dL AST 39 H (14-36) U/L ALT 21 (0-35) U/L Alkaline Phosphatase 122 (38-126) U/L Ammonia (9-30) umol/L Serum Total Protein 5.3 L (6.3-8.2) g/dL Albumin 2.5 L (3.5-5.0) g/dL Amylase (30-110) U/L Lipase (23-300) U/L Radiology Exams: Radiology Procedures Category Date Time Status CHEST 2 VIEWS (PA AND LAT) Routine Exams 10/07/20 07:00 Taken Assessment/Plan (1) Pneumonia Current Visit: Yes Status: Acute Qualifiers: Pneumonia type: due to unspecified organism Laterality: bilateral Lung location: lower lobe of lung Qualified Code(s): J18.9 - Pneumonia, unspecified organism Assessment & Plan: covering with rocephin and zithromax, possible infiltrate on chest xray but clinically not much suggestion of true bacterial pneumonia, I feel her delerium is likley related to her UTI Code(s): J18.9 - PNEUMONIA, UNSPECIFIED ORGANISM (2) Acute UTI Current Visit: Yes Status: Acute Assessment & Plan: on rocephin, e coli sens Code(s): N39.0 - URINARY TRACT INFECTION, SITE NOT SPECIFIED (3) Hypertensive urgency Current Visit: Yes Status: Acute Assessment & Plan: increase dose of hydralazine today, home when bp under better control Code(s): I16.0 - HYPERTENSIVE URGENCY (4) General weakness Current Visit: Yes Status: Acute Code(s): R53.1 - WEAKNESS
--- NOTE | 2020-10-07 08:47 | XRAY ---
Indication: Follow-up infiltrates. Comparison: October 04, 2020. Portable chest unchanged again demonstrating left base infiltrate/atelectasis/effusion and borderline cardiomegaly. No new cardiopulmonary abnormalities.
[2020-10-07] MEDS: Mylicon 80MG PO SCH ×3 (09:01→22:22)
[2020-10-07] MEDS: Cymbalta 30 MG Capsule PO SCH (09:01)
[2020-10-07] MEDS: COREG 12.5 MG PO SCH ×2 (09:01→22:21)
[2020-10-07] MEDS: Aldactone 25 MG PO SCH (09:02)
[2020-10-07] MEDS: Ativan 0.5 MG PO PRN (09:02)
[2020-10-07] MEDS: ECOTRIN 81 MG PO SCH (09:02)
[2020-10-07] MEDS: Avapro 150 MG PO SCH ×2 (09:02→22:20)
[2020-10-07] MEDS: PLAVIX 75 MG Tablet PO SCH (09:02)
[2020-10-07] MEDS: LASIX 20 MG PO SCH ×2 (09:02→17:14)
[2020-10-07] MEDS: PROTONIX 40 MG IV IV SCH (09:03)
[2020-10-07] MEDS: Apresoline 25 MG TABLET PO SCH ×4 (09:14→22:20)
[2020-10-07] MEDS: Bystolic 5 MG PO SCH ×2 (09:28→22:20)
[2020-10-07] MEDS: Sodium Chloride 0.9% 1000 ML 1,000 ML IV SCH (10:00)
[2020-10-07] MEDS: HUMALOG SQ PRN ×2 (11:48→22:34)
[2020-10-07] MEDS ORDERED: Lasix 20 MG/2 ML IV ONE (16:37)
[2020-10-07] MEDS: ROCEPHIN 1 Gm-D5w 50 ml Bag** 1 G/50 ML IVPB IV SCH (17:14)
[2020-10-07] MEDS: Zithromax 500 MG/ 250 ML NaCl Premix 500 MG/250 ML IVPB IV SCH (22:22)
[2020-10-07] MEDS: Lantus Insulin SQ SCH (22:22)
[2020-10-08 05:39] LABS: Absolute Neutrophil Ct (ANC) 2.83 (1.4-6.9); BASOPHIL % 0.2 % (0.0-0.4); Basophil (Absolute #) 0.01 (0-0.4); Eosinophil % 0.5 % (0.00-5.0); Eosinophil (Absolute #) 0.02 (0-0.5); Hematocrit 29.2 % (35-47); Hemoglobin 9.9 gm/dl (12.0-16.0); Lymphocyte (Absolute #) 1.07 (1.0-4.6); Lymphocytes % 24.9 % (24.0-44.0); Mean Cell Volume 88.2 fl (78-100); Mean Corpuscular Hemoglobin 29.9 pg (26-32); Mean Corpuscular Hgb Concent. 33.9 g/dl (32-36); Mean Platelet Volume 9.8 fl (7.5-11.0); Monocyte (Absolute #) 0.37 (0.0-1.3); Monocytes % 8.6 % (0.0-12.0); Neutrophil % 65.8 % (36.0-66.0); Platelet Count 126 K/mm3 (150-450); Red Blood Count 3.31 M/mm3 (4.1-5.4); Red Cell Distribution Width 13.8 % (11.5-14.0); White Blood Count 4.3 K/mm3 (4.0-10.5)
[2020-10-08 05:58] LABS: Calcium 8.5 mg/dL (8.4-10.2); Creatinine 1 1.17 mg/dL (0.52-1.04); EST GLOMERULAR FILTRATION RATE 47.9 ML/MIN; Potassium 3.7 mmol/L (3.5-5.1)
[2020-10-08] MEDS: Sodium Chloride 0.9% 10 ML FLUSH Syringe IV SCH (06:20)
[2020-10-08] MEDS: TYLENOL 325 MG PO PRN (08:02)
[2020-10-08] MEDS: ECOTRIN 81 MG PO SCH (10:39)
[2020-10-08] MEDS: LASIX 20 MG PO SCH (10:39)
[2020-10-08] MEDS: COREG 12.5 MG PO SCH (10:39)
[2020-10-08] MEDS: Aldactone 25 MG PO SCH (10:39)
[2020-10-08] MEDS: PLAVIX 75 MG Tablet PO SCH (10:39)
[2020-10-08] MEDS: Avapro 150 MG PO SCH (10:39)
[2020-10-08] MEDS: Ativan 0.5 MG PO PRN (10:39)
[2020-10-08] MEDS: Apresoline 25 MG TABLET PO SCH (10:39)
[2020-10-08] MEDS: Cymbalta 30 MG Capsule PO SCH (10:39)
[2020-10-08] MEDS: Mylicon 80MG PO SCH (10:39)
[2020-10-08] MEDS: PROTONIX 40 MG IV IV SCH (10:42)
[2020-10-08] MEDS: Bystolic 5 MG PO SCH (10:50)
--- NOTE | 2020-10-08 10:53 | PCM.DS ---
Discharge Summary Date of Admission: 10/05/20 18:40 Admitting Physician: CHOLO MASCORRO Primary Care Provider: ROSITA SMITH Allergies Allergies No Known Drug Allergies Allergy (Verified 10/04/20 20:18) Hospital Summary - Hospital Course Hospital Course: patient was admitted with uti, confusion and hypertensive urgency. her mental status has cleared with treatment, bp has been labile but overall control is improved. home today and will f/u in office, has no PCP - Vitals & Intake/Output Vital Signs: Vital Signs Temperature 98.3 F 10/08/20 06:39 Pulse Rate 78 10/08/20 06:39 Respiratory Rate 10/08/20 06:39 Blood Pressure 180/81 10/08/20 06:39 O2 Sat by Pulse Oximetry 97 10/08/20 06:39 Intake & Output: Intake & Output 10/05/20 10/06/20 10/07/20 10/08/20 11:59 11:59 11:59 11:59 Intake Total 2266 2866 1570 480 Output Total 300 550 200 200 Balance 1966 2316 1370 280 Weight 79.1 kg 79.6 kg 81.8 kg 84.2 kg - Lab Result Diagrams: 10/08/20 04:37 10/08/20 04:37 Lab Results-Last 24 Hrs: Lab Results-Last 24 Hours 10/07/20 10/07/20 10/07/20 Range/Units 11:20 16:03 22:21 WBC (4.0-10.5) K/mm3 RBC (4.1-5.4) M/mm3 Hgb (12.0-16.0) gm/dl Hct (35-47) % MCV (78-100) fl MCH (26-32) pg MCHC (32-36) g/dl RDW (11.5-14.0) % Plt Count (150-450) K/mm3 MPV (7.5-11.0) fl Gran % (36.0-66.0) % Eos # (Auto) (0-0.5) Absolute Lymphs (auto) (1.0-4.6) Absolute Monos (auto) (0.0-1.3) Lymphocytes % (24.0-44.0) % Monocytes % (0.0-12.0) % Eosinophils % (0.00-5.0) % Basophils % (0.0-0.4) % Absolute Granulocytes (1.4-6.9) Basophils # (0-0.4) Sodium (137-145) mmol/L Potassium (3.5-5.1) mmol/L Chloride (98-107) mmol/L Carbon Dioxide (22-30) mmol/L Anion Gap (5-15) MEQ/L BUN (7-17) mg/dL Creatinine (0.52-1.04) mg/dL Estimated GFR ML/MIN Glucose (74-106) mg/dL POC Glucometer 176 H 242 H 229 H (74 to 106) mg/dL Calcium (8.4-10.2) mg/dL 10/08/20 10/08/20 10/08/20 Range/Units 00:26 04:37 04:37 WBC 4.3 (4.0-10.5) K/mm3 RBC 3.31 L (4.1-5.4) M/mm3 Hgb 9.9 L (12.0-16.0) gm/dl Hct 29.2 L (35-47) % MCV 88.2 (78-100) fl MCH 29.9 (26-32) pg MCHC 33.9 (32-36) g/dl RDW 13.8 (11.5-14.0) % Plt Count 126 L (150-450) K/mm3 MPV 9.8 (7.5-11.0) fl Gran % 65.8 (36.0-66.0) % Eos # (Auto) 0.02 (0-0.5) Absolute Lymphs (auto) 1.07 (1.0-4.6) Absolute Monos (auto) 0.37 (0.0-1.3) Lymphocytes % 24.9 (24.0-44.0) % Monocytes % 8.6 (0.0-12.0) % Eosinophils % 0.5 (0.00-5.0) % Basophils % 0.2 (0.0-0.4) % Absolute Granulocytes 2.83 (1.4-6.9) Basophils # 0.01 (0-0.4) Sodium 134 L (137-145) mmol/L Potassium 3.7 (3.5-5.1) mmol/L Chloride 110 H (98-107) mmol/L Carbon Dioxide 24 (22-30) mmol/L Anion Gap 4.0 L (5-15) MEQ/L BUN 28 H (7-17) mg/dL Creatinine 1.17 H (0.52-1.04) mg/dL Estimated GFR 47.9 ML/MIN Glucose 160 H (74-106) mg/dL POC Glucometer 259 H (74 to 106) mg/dL Calcium 8.5 (8.4-10.2) mg/dL 10/08/20 10/08/20 Range/Units 06:33 10:41 WBC (4.0-10.5) K/mm3 RBC (4.1-5.4) M/mm3 Hgb (12.0-16.0) gm/dl Hct (35-47) % MCV (78-100) fl MCH (26-32) pg MCHC (32-36) g/dl RDW (11.5-14.0) % Plt Count (150-450) K/mm3 MPV (7.5-11.0) fl Gran % (36.0-66.0) % Eos # (Auto) (0-0.5) Absolute Lymphs (auto) (1.0-4.6) Absolute Monos (auto) (0.0-1.3) Lymphocytes % (24.0-44.0) % Monocytes % (0.0-12.0) % Eosinophils % (0.00-5.0) % Basophils % (0.0-0.4) % Absolute Granulocytes (1.4-6.9) Basophils # (0-0.4) Sodium (137-145) mmol/L Potassium (3.5-5.1) mmol/L Chloride (98-107) mmol/L Carbon Dioxide (22-30) mmol/L Anion Gap (5-15) MEQ/L BUN (7-17) mg/dL Creatinine (0.52-1.04) mg/dL Estimated GFR ML/MIN Glucose (74-106) mg/dL POC Glucometer 147 H 169 H (74 to 106) mg/dL Calcium (8.4-10.2) mg/dL Micro Results-Entire Visit: Microbiology 10/04/20 15:10 Blood Culture - Preliminary Blood NO GROWTH TO DATE 10/04/20 14:41 Blood Culture - Preliminary Blood NO GROWTH TO DATE 10/04/20 17:43 Urine Culture - Final Urine, Void Escherichia Coli Accuchecks Date 10/07/20 Time 22:34 - Radiology Exams Ordered Rad Exams-Entire Visit: Radiology Procedures Category Date Time Status CHEST 2 VIEWS (PA AND LAT) Routine Exams 10/07/20 07:00 Completed - Procedures and Test Procedures and Tests throughout Hospitalization: Therapy Orders & Screens 10/04/20 20:11 OT Screen per Nursing Assess ONCE Comment: Protocol Order Physician Instructions: Greater than 3 points order OT Admission Screening Reason For Exam: Triggered on Admission Diagnosis: UTI, sec AMS, JANAK Open Wound/Cellutlitis/Pressure Ulcers: No Acute Fx/ORIF/Change in wt bearing status: No Severe MUSCULOSKELETAL pain: No ADL Dysfunction: Yes Acute CVA w/Hemiparesis/Hemiplegia: No Decreased Functional Mobility/Strength: Yes Sprain/Strain: No Acute Post-op Mobility Dysfunction: No Total Points: 4 PT Screen per Nursing Assess ONCE Comment: Protocol Order Physician Instructions: Greater than 3 points order PT Admission Screenin Reason For Exam: Triggered on Admission Diagnosis: UTI, sec AMS, JANAK Open Wound/Cellutlitis/Pressure Ulcers: No Acute Fx/ORIF/Change in wt bearing status: No Severe MUSCULOSKELETAL pain: No ADL Dysfunction: Yes Acute CVA w/Hemiparesis/Hemiplegia: No Decreased Functional Mobility/Strength: Yes Sprain/Strain: No Acute Post-op Mobility Dysfunction: No Total Points: 4 10/04/20 20:23 Respiratory Therapy Assessment DAILY Comment: Diagnosis: UTI, sec AMS, JANAK Discharge Exam General Appearance: no apparent distress, alert Respiratory Exam: normal breath sounds, lungs clear, No respiratory distress Cardiovascular Exam: regular rate/rhythm, normal heart sounds Gastrointestinal/Abdomen Exam: soft, No tenderness, No mass Extremity Exam: normal inspection, normal range of motion Final Diagnosis/Problem List - Final Discharge Diagnosis/Problem (1) Pneumonia Current Visit: Yes Status: Acute Assessment & Plan: home on omnicef Code(s): J18.9 - PNEUMONIA, UNSPECIFIED ORGANISM (2) Acute UTI Current Visit: Yes Status: Acute Assessment & Plan: e coli, omnicef will cover Code(s): N39.0 - URINARY TRACT INFECTION, SITE NOT SPECIFIED (3) Hypertensive urgency Current Visit: Yes Status: Acute Code(s): I16.0 - HYPERTENSIVE URGENCY (4) General weakness Current Visit: Yes Status: Acute Code(s): R53.1 - WEAKNESS - Discharge Disposition: Home, Self-Care Condition: Stable Prescriptions: New Cefdinir 300 mg PO BID #14 capsule Hydralazine HCl 50 mg PO BID #60 tablet Continue Ergocalciferol (Vitamin D2) [Vitamin D2] 50,000 unit PO Q7D Aspirin EC 81 mg [Ecotrin 81 mg] 81 mg PO DAILY Nebivolol HCl [Bystolic] 20 mg PO BID Hydroxyzine HCl 10 mg PO BID Mirabegron [Myrbetriq] 50 mg PO DAILY Irbesartan 150 mg [Avapro 150 MG] 150 mg PO BID Duloxetine HCl [Cymbalta] 60 mg PO DAILY Spironolactone 25 mg PO DAILY Clopidogrel Bisulfate 75 mg [PLAVIX 75 MG Tablet] 75 mg PO DAILY carvediloL [Carvedilol] 25 mg PO BID Rifaximin [Xifaxan] 550 mg PO BID Furosemide 20 mg [Lasix 20 mg] 20 mg PO BID carisoprodoL [Carisoprodol] 350 mg PO BID Nitroglycerin 0.4 mg (Ed) [Nitrostat 0.4 MG (ED)] 0.4 mg SL UD Insulin Aspart [Novolog] 20 unit SQ BREAKFAST Insulin Degludec [Tresiba] 42 unit SQ HS Insulin Aspart [Novolog] 26 unit SQ DINNER Follow up with: ROSITA SMITH MD [Primary Care Provider] - 1 Week
[2020-10-08 13:11] VITALS: BP 179/77; PULSE 73; O2SAT 95
[2020-10-09] MEDS ORDERED: VITAMIN D2 PO SCH (10:00)
== END 2020-10-08 13:40 | disposition home or self-care (01) | DRG 194 ==
LOC: ED 14:34 → MED SURG 18:30 → OBSVTOIN 10-05 18:40
PROVIDERS: ADMIT Family Medicine; ATTEND Family Medicine
DX: J18.9 Pneumonia, unspecified organism (principal); N39.0 Urinary tract infection, site not specified; N17.9 Acute kidney failure, unspecified; I16.0 Hypertensive urgency; R51.9 Headache, unspecified; R41.0 Disorientation, unspecified; K74.60 Unspecified cirrhosis of liver; Z79.899 Other long term (current) drug therapy; Z79.01 Long term (current) use of anticoagulants; R53.83 Other fatigue; E11.9 Type 2 diabetes mellitus without complications; E78.00 Pure hypercholesterolemia, unspecified; E03.9 Hypothyroidism, unspecified; R53.1 Weakness; J44.9 Chronic obstructive pulmonary disease, unspecified
CPT/HCPCS: 36000; 36415; 70450; 71045; 71046; 80048; 80053; 81001; 82140; 82150; 82947; 83605; 83690; 83735; 83880; 84484; 85025; 85027; 87040; 87077; 87086; 87186; 93005; 93268; 94760; 96365; 96374; 96375; 99285; 99291; G0378; U0003; J0360; J0456; J0696; J1200; J1817; J1940; A9270-GY

== ENCOUNTER 2021-07-10 21:36 | Inpatient (IN) | payer MEDICARE, BC ==
--- NOTE | 2021-07-10 21:45 | ERPHSYRPT ---
- History of Present Illness Time Seen by Provider: 07/10/21 21:40 Source: EMS, old records Exam Limitations: clinical condition Physician History: This is a 76-year-old white female has a history of encephalopathy, esophageal varices, hypertension, chronic renal disease, elevated cholesterol, COPD, hypothyroidism and insulin-dependent diabetes who is also on Plavix and was last known well and her usual self over 24 hours ago. Family called ambulance service because the patient is unresponsive. EMS infuse 500 mL of normal saline solution intravenously. Patient was lying in bed. There was dried blood around her mouth and nose. Patient arrives responsive to painful stimuli and pupils are equal and reactive to light. She does not follow commands. However, she is holding her oxygenation level 99 to 100% on 100% nonrebreather. Patient sees Dr. Mars Timing/Duration: today Severity: severe Character of Deficits: unable to speak, other (Unresponsive) Baseline/Normal Cognition: poor alertness Current Cognition: poor alertness Baseline Gait: walks w/o assistance Associated Symptoms: trouble walking, other Allergies/Adverse Reactions: No Known Drug Allergies Allergy (Verified 10/04/20 20:18) Home Medications: Aspirin EC 81 mg [Ecotrin 81 mg] 81 mg PO DAILY 10/04/20 [History] Clopidogrel Bisulfate 75 mg [PLAVIX 75 MG Tablet] 75 mg PO DAILY 10/04/20 [History] Duloxetine HCl [Cymbalta] 60 mg PO DAILY 10/04/20 [History] Ergocalciferol (Vitamin D2) [Vitamin D2] 50,000 unit PO Q7D 10/04/20 [History] Furosemide 20 mg [Lasix 20 mg] 20 mg PO BID 10/04/20 [History] Hydroxyzine HCl 10 mg PO BID 10/04/20 [History] Insulin Aspart [Novolog] 20 unit SQ BREAKFAST 10/04/20 [History] Insulin Aspart [Novolog] 26 unit SQ DINNER 10/04/20 [History] Insulin Degludec [Tresiba] 42 unit SQ HS 10/04/20 [History] Irbesartan 150 mg [Avapro 150 MG] 150 mg PO BID 10/04/20 [History] Mirabegron [Myrbetriq] 50 mg PO DAILY 10/04/20 [History] Nebivolol HCl [Bystolic] 20 mg PO BID 10/04/20 [History] Nitroglycerin 0.4 mg (Ed) [Nitrostat 0.4 MG (ED)] 0.4 mg SL UD 10/04/20 [History] Rifaximin [Xifaxan] 550 mg PO BID 10/04/20 [History] Spironolactone 25 mg PO DAILY 10/04/20 [History] carisoprodoL [Carisoprodol] 350 mg PO BID 10/04/20 [History] carvediloL [Carvedilol] 25 mg PO BID 10/04/20 [History] Hx Tetanus, Diphtheria Vaccination/Date Given: Yes (2010) Hx Influenza Vaccination/Date Given: Yes () Hx Pneumococcal Vaccination/Date Given: Yes (2010) Travel Risk - International Travel Have you traveled outside of the country in past 3 weeks: No - Coronavirus Screening Are you exhibiting any of the following symptoms?: No Close contact with a COVID-19 positive Pt in past 14-21 Days: No - Review of Systems Constitutional: Lethargy Eyes: No Symptoms Ears, Nose, & Throat: Other (Dried blood around nose and mouth) Respiratory: No Symptoms Cardiac: No Symptoms Abdominal/Gastrointestinal: No Symptoms Genitourinary Symptoms: No Symptoms Musculoskeletal: No Symptoms Skin: Other (Pale) Neurological: Other (Unresponsive) Psychological: No Symptoms Endocrine: No Symptoms Hematologic/Lymphatic: No Symptoms Immunological/Allergic: No Symptoms All Other Systems: Reviewed and Negative - Past Medical History Pertinent Past Medical History: Yes (cirrhosis) Neurological History: No Pertinent History ENT History: Cataracts Cardiac History: Angina, Coronary Artery Disease, High Cholesterol, Hypertension Respiratory History: COPD Endocrine Medical History: Diabetes Type II, Hypothyroidism Musculoskeletal History: Arthritis, Osteoarthritis GI Medical History: Cirrhosis, GERD History: Renal Disease Psycho-Social History: Anxiety, Depression, Panic Disorder - Past Surgical History Past Surgical History: Yes Cardiac: Cardiac Catheterization, Cardiac Stent Gastrointestinal: Cholecystectomy, Other Female Surgical History: Hysterectomy Other Surgical History: bladder tuck - Social History Smoking Status: Never smoker Exposure to second hand smoke: No Drug Use: none Patient Lives Alone: No - Nursing Vital Signs Nursing Vital Signs: Initial Vital Signs Pulse Rate 96 H 07/10/21 21:40 Respiratory Rate 16 07/10/21 21:40 Blood Pressure 137/73 07/10/21 21:40 O2 Sat by Pulse Oximetry 99 07/10/21 21:40 Pain Scale Pain Intensity 0 - [place] Coma Scale Best Eye Response ([place]): (1) no response Best Verbal Response ([place]): (1) no verbal response Best Motor Response ([place]): (1) no motor response [place] Total: 3 - Physical Exam General Appearance: lethargy Eye Exam: bilateral eye: normal inspection, PERRL, EOMI Ears, Nose, Throat Exam: normal ENT inspection, dry mucous membranes Neck Exam: normal inspection, supple Respiratory: normal breath sounds, lungs clear, airway intact, other (Patient has spontaneous breath sounds in her lungs are clear. She is holding her oxygen saturations at 99%.), No chest tenderness, No respiratory distress Gastrointestinal: soft, normal bowel sounds, No tenderness Pelvic Exam: not done Rectal Exam: not done Back Exam: normal inspection, normal range of motion, No CVA tenderness, No vertebral tenderness Extremity Exam: normal inspection, pelvis stable Mental Status: lethargy, unresponsive Skin Exam: pale, other (Cool) SpO2 Interpretation: normal O2 Delivery: Nasal Cannula - Course Nursing assessment & vital signs reviewed: Yes EKG Interpreted by Me: RATE (104), Sinus Tach, Left [place] Deviation, NORMAL INTERVALS, NORMAL QRS, NORMAL ST-T, Other (There are no acute ischemic changes on today's EKG. When compared to EKG 10/05/2020, there is new sinus tachycardia but it is low rate at 104 bpm. There is persistent left axis deviation ) Ordered Tests: Active Orders 24 hr Category Date Time Status Catheter-[place] STAT Care 07/10/21 21:55 Active EKG-ER Only STAT Care 07/10/21 21:55 Active IV Insertion STAT Care 07/10/21 21:55 Active NGT [Gastric Tube Insertion] STAT Care 07/11/21 00:42 Active CERVICAL SPINE WO CONTRAST [CT] Routine Exams 07/11/21 01:09 Taken CHEST 1 VIEW (PORTABLE) Stat Exams 07/10/21 21:50 Taken FACIAL BONES WO CONTRAST [CT] Routine Exams 07/11/21 01:09 Taken HEAD WITHOUT CONTRAST [CT] Routine Exams 07/11/21 01:09 Taken AMYLASE Stat Lab 07/10/21 22:24 Completed Alcohol [ETHYL ALCOHOL] Stat Lab 07/11/21 03:08 Ordered CBC W DIFF Stat Lab 07/10/21 22:24 Completed CMP Stat Lab 07/10/21 22:24 Completed CULTURE,URINE Stat Lab 07/10/21 22:24 Received LIPASE Stat Lab 07/10/21 22:24 Completed Lactic Acid Stat Lab 07/10/21 23:30 Completed Manual Differential NC Stat Lab 07/10/21 22:24 Completed T4 (Thyroxine) Stat Lab 07/10/21 22:24 Completed TROPONIN Q3H Lab 07/10/21 22:24 Completed TROPONIN Q3H Lab 07/11/21 01:00 Completed TROPONIN Q3H Lab 07/11/21 04:00 Ordered TROPONIN Q3H Lab 07/11/21 07:00 Ordered TROPONIN Q3H Lab 07/11/21 10:00 Ordered TSH [TSH, 3RD Generation] Stat Lab 07/10/21 22:24 Completed UA W/RFX UR CULTURE Stat Lab 07/10/21 22:24 Completed Transfer Order Routine Transfer 07/11/21 Ordered Medication Summary Generic Name Dose Route Start Last Admin Trade Name Freq PRN Reason Stop Dose Admin Sodium Chloride 1,000 mls @ 100 mls/hr 07/10/21 23:45 07/10/21 23:55 Sodium Chloride 0.9% 1000 Ml IV 08/09/21 23:44 100 mls/hr .Q10H ITA Administration Discontinued Medications Generic Name Dose Route Start Last Admin Trade Name Freq PRN Reason Stop Dose Admin Lactulose 30 g 07/11/21 00:44 07/11/21 02:24 Enulose 10 Gm/15 Ml NG 07/11/21 00:45 30 g STAT ONE Administration Lactulose Confirm 07/11/21 01:55 Lactulose 20 Gm/30ml Ud Cup Administered 07/11/21 01:56 Dose 40 gm .ROUTE .STK-MED ONE Morphine Sulfate 2 mg 07/10/21 21:55 Morphine Sulfate 2 Mg Inj IV 07/10/21 21:56 STAT ONE Ondansetron HCl 4 mg 07/10/21 21:55 Zofran 4 Mg/2 Ml Vial IV 07/10/21 21:56 STAT ONE Lab/Rad Data: Laboratory Result Diagrams 07/10/21 22:24 07/10/21 22:24 Laboratory Results 1007/10/21 07/10/21 Range/Units 01:00 Unknown 23:35 WBC (4.0-10.5) K/mm3 RBC (4.1-5.4) M/mm3 Hgb (12.0-16.0) gm/dl Hct (35-47) % MCV (78-100) fl MCH (26-32) pg MCHC (32-36) g/dl RDW (11.5-14.0) % Plt Count (150-450) K/mm3 MPV (7.5-11.0) fl Segmented Neutrophils (36.0-66.0) % Lymphocytes (Manual) (24-44) % Monocytes (Manual) (0.0-12.0) % Platelet Estimate (NORMAL) RBC Morphology Polychromasia Anisocytosis Sodium (137-145) mmol/L Potassium (3.5-5.1) mmol/L Chloride (98-107) mmol/L Carbon Dioxide (22-30) mmol/L Anion Gap (5-15) MEQ/L BUN (7-17) mg/dL Creatinine (0.52-1.04) mg/dL Estimated GFR ML/MIN Glucose (74-106) mg/dL Lactic Acid (0.4-2.0) Calcium (8.4-10.2) mg/dL Total Bilirubin (0.2-1.3) mg/dL AST (14-36) U/L ALT (0-35) U/L Alkaline Phosphatase (38-126) U/L Ammonia 113 H (9-30) umol/L Troponin I 0.042 H* (0.000-0.034) ng/mL Serum Total Protein (6.3-8.2) g/dL Albumin (3.5-5.0) g/dL Amylase (30-110) U/L Lipase (23-300) U/L Thyroxine (T4) (5.53-10.96) ug/dL TSH 3rd Generation (0.47-4.68) mIU/L Urine Color (YELLOW) Urine Appearance (CLEAR) Urine pH (5-6) Ur Specific [place] (1.005-1.025) Urine Protein (Negative) Urine Ketones (NEGATIVE) Urine Blood (0-5) Karl/ul Urine Nitrite (NEGATIVE) Urine Bilirubin (NEGATIVE) Urine Urobilinogen (0-1) mg/dL Ur Leukocyte Esterase (NEGATIVE) Urine WBC (Auto) (0-5) /HPF Urine RBC (Auto) (0-2) /HPF U Hyaline Cast (Auto) (0-2) /LPF U Epithel Cells (Auto) (FEW) /HPF Urine Bacteria (Auto) (NEGATIVE) /HPF Urine Mucus (Auto) (NEGATIVE) /HPF Urine Culture Reflexed (NO) Urine Glucose (NEGATIVE) mg/dL Urine Opiates Level NEGATIVE (NEGATIVE) Ur Methadone NEGATIVE (NEGATIVE) Urine Barbiturates NEGATIVE (NEGATIVE) Ur Phencyclidine (PCP) NEGATIVE (NEGATIVE) Urine Amphetamine NEGATIVE (NEGATIVE) U Benzodiazepine Level NEGATIVE (NEGATIVE) Urine Cocaine NEGATIVE (NEGATIVE) Urine Marijuana (THC) NEGATIVE (NEGATIVE) 07/10/21 07/10/21 07/10/21 Range/Units 23:30 22:24 22:24 WBC (4.0-10.5) K/mm3 RBC (4.1-5.4) M/mm3 Hgb (12.0-16.0) gm/dl Hct (35-47) % MCV (78-100) fl MCH (26-32) pg MCHC (32-36) g/dl RDW (11.5-14.0) % Plt Count (150-450) K/mm3 MPV (7.5-11.0) fl Segmented Neutrophils (36.0-66.0) % Lymphocytes (Manual) (24-44) % Monocytes (Manual) (0.0-12.0) % Platelet Estimate (NORMAL) RBC Morphology Polychromasia Anisocytosis Sodium (137-145) mmol/L Potassium (3.5-5.1) mmol/L Chloride (98-107) mmol/L Carbon Dioxide (22-30) mmol/L Anion Gap (5-15) MEQ/L BUN (7-17) mg/dL Creatinine (0.52-1.04) mg/dL Estimated GFR ML/MIN Glucose (74-106) mg/dL Lactic Acid 1.7 (0.4-2.0) Calcium (8.4-10.2) mg/dL Total Bilirubin (0.2-1.3) mg/dL AST (14-36) U/L ALT (0-35) U/L Alkaline Phosphatase (38-126) U/L Ammonia (9-30) umol/L Troponin I (0.000-0.034) ng/mL Serum Total Protein (6.3-8.2) g/dL Albumin (3.5-5.0) g/dL Amylase (30-110) U/L Lipase (23-300) U/L Thyroxine (T4) 5.43 L (5.53-10.96) ug/dL TSH 3rd Generation 0.204 L (0.47-4.68) mIU/L Urine Color (YELLOW) Urine Appearance (CLEAR) Urine pH (5-6) Ur Specific [place] (1.005-1.025) Urine Protein (Negative) Urine Ketones (NEGATIVE) Urine Blood (0-5) Karl/ul Urine Nitrite (NEGATIVE) Urine Bilirubin (NEGATIVE) Urine Urobilinogen (0-1) mg/dL Ur Leukocyte Esterase (NEGATIVE) Urine WBC (Auto) (0-5) /HPF Urine RBC (Auto) (0-2) /HPF U Hyaline Cast (Auto) (0-2) /LPF U Epithel Cells (Auto) (FEW) /HPF Urine Bacteria (Auto) (NEGATIVE) /HPF Urine Mucus (Auto) (NEGATIVE) /HPF Urine Culture Reflexed (NO) Urine Glucose (NEGATIVE) mg/dL Urine Opiates Level (NEGATIVE) Ur Methadone (NEGATIVE) Urine Barbiturates (NEGATIVE) Ur Phencyclidine (PCP) (NEGATIVE) Urine Amphetamine (NEGATIVE) U Benzodiazepine Level (NEGATIVE) Urine Cocaine (NEGATIVE) Urine Marijuana (THC) (NEGATIVE) 07/10/21 07/10/21 07/10/21 Range/Units 22:24 22:24 22:24 WBC (4.0-10.5) K/mm3 RBC (4.1-5.4) M/mm3 Hgb (12.0-16.0) gm/dl Hct (35-47) % MCV (78-100) fl MCH (26-32) pg MCHC (32-36) g/dl RDW (11.5-14.0) % Plt Count (150-450) K/mm3 MPV (7.5-11.0) fl Segmented Neutrophils (36.0-66.0) % Lymphocytes (Manual) (24-44) % Monocytes (Manual) (0.0-12.0) % Platelet Estimate (NORMAL) RBC Morphology Polychromasia Anisocytosis Sodium 135 L (137-145) mmol/L Potassium 5.0 (3.5-5.1) mmol/L Chloride 105 (98-107) mmol/L Carbon Dioxide 19 L (22-30) mmol/L Anion Gap 16.5 H (5-15) MEQ/L BUN 78 H (7-17) mg/dL Creatinine 2.40 H (0.52-1.04) mg/dL Estimated GFR 20.9 ML/MIN Glucose 150 H (74-106) mg/dL Lactic Acid (0.4-2.0) Calcium 9.5 (8.4-10.2) mg/dL Total Bilirubin 1.40 H (0.2-1.3) mg/dL AST 74 H (14-36) U/L ALT 69 H (0-35) U/L Alkaline Phosphatase 556 H (38-126) U/L Ammonia (9-30) umol/L Troponin I 0.040 H* (0.000-0.034) ng/mL Serum Total Protein 6.9 (6.3-8.2) g/dL Albumin 3.5 (3.5-5.0) g/dL Amylase 72 (30-110) U/L Lipase 186 (23-300) U/L Thyroxine (T4) (5.53-10.96) ug/dL TSH 3rd Generation (0.47-4.68) mIU/L Urine Color YELLOW (YELLOW) Urine Appearance CLEAR (CLEAR) Urine pH 6.0 (5-6) Ur Specific [place] 1.014 (1.005-1.025) Urine Protein 100 (Negative) Urine Ketones NEGATIVE (NEGATIVE) Urine Blood NEGATIVE (0-5) Karl/ul Urine Nitrite NEGATIVE (NEGATIVE) Urine Bilirubin NEGATIVE (NEGATIVE) Urine Urobilinogen NEGATIVE (0-1) mg/dL Ur Leukocyte Esterase NEGATIVE (NEGATIVE) Urine WBC (Auto) 3-5 (0-5) /HPF Urine RBC (Auto) 0-2 (0-2) /HPF U Hyaline Cast (Auto) 6-10 (0-2) /LPF U Epithel Cells (Auto) NONE (FEW) /HPF Urine Bacteria (Auto) NONE (NEGATIVE) /HPF Urine Mucus (Auto) SLIGHT (NEGATIVE) /HPF Urine Culture Reflexed NO (NO) Urine Glucose >=500 (NEGATIVE) mg/dL Urine Opiates Level (NEGATIVE) Ur Methadone (NEGATIVE) Urine Barbiturates (NEGATIVE) Ur Phencyclidine (PCP) (NEGATIVE) Urine Amphetamine (NEGATIVE) U Benzodiazepine Level (NEGATIVE) Urine Cocaine (NEGATIVE) Urine Marijuana (THC) (NEGATIVE) 07/10/21 Range/Units 22:24 WBC 5.9 (4.0-10.5) K/mm3 RBC 3.43 L (4.1-5.4) M/mm3 Hgb 10.5 L (12.0-16.0) gm/dl Hct 31.4 L (35-47) % MCV 91.5 (78-100) fl MCH 30.6 (26-32) pg MCHC 33.4 (32-36) g/dl RDW 16.5 H (11.5-14.0) % Plt Count 143 L (150-450) K/mm3 MPV 10.0 (7.5-11.0) fl Segmented Neutrophils 80 H (36.0-66.0) % Lymphocytes (Manual) 11 L (24-44) % Monocytes (Manual) 9 (0.0-12.0) % Platelet Estimate DECREASED (NORMAL) RBC Morphology ABNORMAL Polychromasia 1+ Anisocytosis 2+ Sodium (137-145) mmol/L Potassium (3.5-5.1) mmol/L Chloride (98-107) mmol/L Carbon Dioxide (22-30) mmol/L Anion Gap (5-15) MEQ/L BUN (7-17) mg/dL Creatinine (0.52-1.04) mg/dL Estimated GFR ML/MIN Glucose (74-106) mg/dL Lactic Acid (0.4-2.0) Calcium (8.4-10.2) mg/dL Total Bilirubin (0.2-1.3) mg/dL AST (14-36) U/L ALT (0-35) U/L Alkaline Phosphatase (38-126) U/L Ammonia (9-30) umol/L Troponin I (0.000-0.034) ng/mL Serum Total Protein (6.3-8.2) g/dL Albumin (3.5-5.0) g/dL Amylase (30-110) U/L Lipase (23-300) U/L Thyroxine (T4) (5.53-10.96) ug/dL TSH 3rd Generation (0.47-4.68) mIU/L Urine Color (YELLOW) Urine Appearance (CLEAR) Urine pH (5-6) Ur Specific [place] (1.005-1.025) Urine Protein (Negative) Urine Ketones (NEGATIVE) Urine Blood (0-5) Karl/ul Urine Nitrite (NEGATIVE) Urine Bilirubin (NEGATIVE) Urine Urobilinogen (0-1) mg/dL Ur Leukocyte Esterase (NEGATIVE) Urine WBC (Auto) (0-5) /HPF Urine RBC (Auto) (0-2) /HPF U Hyaline Cast (Auto) (0-2) /LPF U Epithel Cells (Auto) (FEW) /HPF Urine Bacteria (Auto) (NEGATIVE) /HPF Urine Mucus (Auto) (NEGATIVE) /HPF Urine Culture Reflexed (NO) Urine Glucose (NEGATIVE) mg/dL Urine Opiates Level (NEGATIVE) Ur Methadone (NEGATIVE) Urine Barbiturates (NEGATIVE) Ur Phencyclidine (PCP) (NEGATIVE) Urine Amphetamine (NEGATIVE) U Benzodiazepine Level (NEGATIVE) Urine Cocaine (NEGATIVE) Urine Marijuana (THC) (NEGATIVE) - Progress Progress: unchanged Progress Note: 07/11/21 02:55 Medical decision making: We received more information from the patient's family. Approximately 1 month ago similar episode happened while at [facility]. The ammonia level is 173 and the patient was admitted to the hospital and given lactulose and over a few days patient became more awake and alert. Patient also does see [facility] for cardiac issues. She is never had a CABG or stent placement. She has had myocardial infarction in the past but no surgical intervention was performed. We called [facility] and they are diverting from ED transfer patients. [facility] have no beds available and they are housing patients in their emergency department. I contacted Dr. Juan who is our hospitalist on this morning. I reviewed the patient history, condition, results of our laboratory and radiographic work-up. He is aware that the patient's troponin is slightly elevated. This may be secondary to acute renal insufficiency. We will put her on telemetry and continue the lactulose. 07/11/21 02:59 CAT scan of the head without contrast shows no evidence of any acute intracranial pathology or process CAT scan of the cervical spine shows no acute fracture or subluxation. CAT scan of the facial bones shows no acute fracture or dislocation. Discussed with DrIra: Abiola Counseled pt/family regarding: lab results, diagnosis, rad results - Departure Departure Disposition: In-patient Admission Clinical Impression: Metabolic encephalopathy, Acute on chronic renal insufficiency, Elevated troponin Condition: Serious Critical Care Time: Yes Critical Care Time(excluding separately billable procedures): Critical 30-74 mins Referrals: ROSITA SMITH MD [Primary Care Provider] -
[2021-07-10] MEDS ORDERED: Zofran 4 MG/2 ML VIAL IV ONE (21:55)
[2021-07-10] MEDS ORDERED: MORPHINE SULFATE 2 MG INJ IV ONE (21:55)
[2021-07-10 22:35] LABS: ALBUMIN 3.5 g/dL (3.5-5.0); ANION GAP 16.5 MEQ/L (5-15); BILIRUBIN,TOTAL 1.4 mg/dL (0.2-1.3); Calcium 9.5 mg/dL (8.4-10.2); Creatinine 1 2.4 mg/dL (0.52-1.04); EST GLOMERULAR FILTRATION RATE 20.9 ML/MIN; Total Protein 6.9 g/dL (6.3-8.2)
[2021-07-10 22:46] LABS: Appearance CLEAR (CLEAR); Bilirubin NEGATIVE (NEGATIVE); Blood NEGATIVE Ery/ul (0-5); Glucose >=500 mg/dL (NEGATIVE); Ketones NEGATIVE (NEGATIVE); Leukocyte Esterase NEGATIVE (NEGATIVE); Mucus SLIGHT /HPF (NEGATIVE); Nitrite NEGATIVE (NEGATIVE); Protein,Urine Dip 100 (Negative); RBC 0-2 /HPF (0-2); Specific Gravity 1.014 (1.005-1.025); Urobilinogen NEGATIVE mg/dL (0-1)
[2021-07-10 22:51] LABS: Hematocrit 31.4 % (35-47); Hemoglobin 10.5 gm/dl (12.0-16.0); Mean Cell Volume 91.5 fl (78-100); Mean Corpuscular Hemoglobin 30.6 pg (26-32); Mean Corpuscular Hgb Concent. 33.4 g/dl (32-36); Platelet Count 143 K/mm3 (150-450); Red Blood Count 3.43 M/mm3 (4.1-5.4); Red Cell Distribution Width 16.5 % (11.5-14.0); White Blood Count 5.9 K/mm3 (4.0-10.5)
[2021-07-10] MEDS ORDERED: Sodium Chloride 0.9% 1000 ML 1,000 ML IV SCH (23:45)
[2021-07-10 23:55] LABS: Amphetamine,Urine NEGATIVE (NEGATIVE); Barbiturate,Urine NEGATIVE (NEGATIVE); Benzodiazepine,Urine NEGATIVE (NEGATIVE); Cocaine,Urine NEGATIVE (NEGATIVE); Methadone,Urine NEGATIVE (NEGATIVE); Opiate,Urine NEGATIVE (NEGATIVE); PCP,Urine NEGATIVE (NEGATIVE); THC,Urine NEGATIVE (NEGATIVE)
[2021-07-11] MEDS ORDERED: Enulose 10 GM/15 ML NG ONE (00:44)
[2021-07-11 01:39] LABS: ANISOCYTOSIS 2+; Lymphocytes 11 % (24-44); Monocyte 9 % (0.0-12.0); Neutrophils 80 % (36.0-66.0); Platelet Estimate DECREASED (NORMAL); Polychromasia 1+; Total Cells Counted 100
[2021-07-11] MEDS ORDERED: LACTULOSE 20 GM/30ML UD CUP ONE ×2 (01:55→03:22)
[2021-07-11] MEDS ORDERED: LACTULOSE 20 GM/30ML UD CUP PO SCH (03:41)
[2021-07-11] MEDS ORDERED: Zofran 4 MG/2 ML VIAL IV PRN (05:52)
[2021-07-11 07:16] LABS: Hematocrit 32.2 % (35-47); Hemoglobin 10.7 gm/dl (12.0-16.0); Mean Cell Volume 91.7 fl (78-100); Mean Corpuscular Hemoglobin 30.5 pg (26-32); Mean Corpuscular Hgb Concent. 33.2 g/dl (32-36); Mean Platelet Volume 9.9 fl (7.5-11.0); Platelet Count 171 K/mm3 (150-450); Red Blood Count 3.51 M/mm3 (4.1-5.4); Red Cell Distribution Width 16.5 % (11.5-14.0); White Blood Count 8.5 K/mm3 (4.0-10.5)
[2021-07-11 07:27] LABS: ANION GAP 15.7 MEQ/L (5-15); Creatinine 1 2.22 mg/dL (0.52-1.04); EST GLOMERULAR FILTRATION RATE 22.8 ML/MIN; Potassium 4.5 mmol/L (3.5-5.1)
[2021-07-11 08:41] LABS: PREALBUMIN 22.19 mg/dL (17.6-36.0)
--- NOTE | 2021-07-11 08:50 | PCM.HP ---
History of Present Illness - Chief Complaint Chief Complaint: metabloic encepalopathy. Acute on Chronic RF, Increased tro ponin History of Present Illness: is a 76 year old female patient of Dr Farr with no local physician, she was found unresponsive in her bed and brought to the emergency department last night. She has a history of cirrhosis and advanced CAD, she has intermittent bouts of confusion and decreased responsiveness when her ammonia is high. She had a fall at home 1 month ago, was unresponsive and hospitalized, xrays were negative according to her son and daughter in law, she has a large hematoma to her right upper arm following that fall. 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 ER was unable to transfer her to any other larger hospital due to lack of beds/staffing last night per ER documentation. - Review of Systems All Other Systems: Unable due to condition Medications & Allergies Home Medications: Home Medication List Aspirin EC 81 mg [Ecotrin 81 mg] 81 mg PO DAILY 10/04/20 [History Confirmed 07/11/21] Clopidogrel Bisulfate 75 mg [PLAVIX 75 MG Tablet] 75 mg PO DAILY 10/04/20 [History Confirmed 07/11/21] Ergocalciferol (Vitamin D2) [Vitamin D2] 50,000 unit PO Q7D 10/04/20 [History Confirmed 07/11/21] Mirabegron [Myrbetriq] 50 mg PO DAILY 10/04/20 [History Confirmed 07/11/21] Spironolactone 50 mg PO BID 10/04/20 [History Confirmed 07/11/21] Acetaminophen 325 mg [Tylenol 325 mg] 2 tab PO Q4H PRN PRN 07/11/21 [History Confirmed 07/11/21] Biotin 1 tab PO HS 07/11/21 [History Confirmed 07/11/21] Bumetanide 1 mg [Bumex 1 mg] 1 mg PO DAILY 07/11/21 [History Confirmed 07/11/21] Dapagliflozin Propanediol [Farxiga] 10 mg PO DAILY 07/11/21 [History Confirmed 07/11/21] Folic Acid 1 mg [Folate 1 mg] 1 mg PO DAILY 07/11/21 [History Confirmed 07/11/21] Glipizide 5 mg [Glucotrol 5 MG] 5 mg PO BID 07/11/21 [History Confirmed 07/11/21] Lactulose 10 gm/15 ml [Enulose 10 GM/15 ML] 15 ml PO BID 07/11/21 [History Confirmed 07/11/21] Levothyroxine Sodium 25 Mcg [Synthroid 25 Mcg] 25 mcg PO DAILY 07/11/21 [History Confirmed 07/11/21] Midodrine HCl 5 mg [Proamatine 5 mg] 5 mg PO BID 07/11/21 [History Confirmed 07/11/21] PANTOPRAZOLE 40 mg Tablet [Protonix 40MG Tablet] 40 mg PO DAILY 07/11/21 [History Confirmed 07/11/21] Patiromer Calcium Sorbitex [Veltassa] 8.4 mg PO Q48H 07/11/21 [History Confirmed 07/11/21] Rifaximin [Xifaxan] 1 tab PO BID 07/11/21 [History Confirmed 07/11/21] Sitagliptin Phosphate 50 MG [Januvia 50 MG] 50 mg PO BID 07/11/21 [History Confirmed 07/11/21] Allergies/Adverse Reactions: Allergies Allergy/AdvReac Type Severity Reaction Status Date / Time rosuvastatin [From Crestor] Allergy Verified 07/11/21 05:15 - Past Medical History Past Medical History: Yes (cirrhosis) Neurological History: No Pertinent History ENT History: Cataracts Cardiac History: Angina, Coronary Artery Disease, High Cholesterol, Hypertension Respiratory History: COPD Endocrine Medical History: Diabetes Type II, Hypothyroidism Musculoskelatal History: Arthritis, Osteoarthritis GI Medical History: Cirrhosis, GERD History: Renal Disease Pyscho-Social History: Anxiety, Depression, Panic Disorder Comment: esophageal varices. history recalled, pt unable to answer - Female History Are you now?: No - Past Surgical History Past Surgical History: Yes Cardiac History: Cardiac Catheterization, Cardiac Stent GI Surgical History: Cholecystectomy, Other Female Surgical History: Hysterectomy Other Surgical History: bladder tuck - Social History Smoking Status: Unknown if ever smoked Exposure to second hand smoke: (unknown) Alcohol: None Drug Use: none - Physical Exam Vital Signs: Vital Signs - 24 hr Temp Pulse Pulse Resp BP Pulse Ox 07/11/21 08:03 97.5 F 111 H 18 155/74 99 07/11/21 06:31 97.9 F 118 H 20 148/71 97 07/11/21 06:16 20 07/11/21 05:52 97 07/11/21 05:48 97.9 F 118 H 20 148/71 97 07/11/21 05:00 110 H 20 120/80 98 07/11/21 04:00 98.6 F 106 H 17 134/71 99 07/11/21 03:00 98.4 F 105 H 18 119/68 99 07/11/21 02:24 98.6 F 106 H 17 116/64 100 07/11/21 01:22 98.8 F 92 H 15 108/61 100 07/11/21 00:00 110 H 20 109/66 99 07/10/21 23:00 106 H 18 125/76 100 07/10/21 21:40 104 H 96 H 16 137/73 99 General Appearance: no apparent distress Neurologic Exam: No alert, No oriented x 3, No cooperative Respiratory Exam: normal breath sounds, lungs clear, No respiratory distress Cardiovascular Exam: regular rate/rhythm, normal heart sounds, normal peripheral pulses Gastrointestinal/Abdomen Exam: soft, normal bowel sounds, No tenderness, No mass Extremity Exam: other (large ecchymosis to right upper arm, posturing on the right, decr rom to right arm) Wound Assessment: Skin/Wound Assessment Wound/Incision Assessment Start: 07/11/21 06:22 Text: Status: Active Freq: Q6H Protocol: Document 07/11/21 06:22 BSO (Rec: 07/11/21 06:29 BSO [id number]) Wound/Incision Assessment Posterior Coccyx Wound Assessment Admission Wound Type Skin Tear Wound Stage Stage I Drainage Amount None Drainage Odor None/Absent General Appearance Open to air,Clean/Dry Surrounding Tissue Dark Red Wound Photo Photo Taken Yes Date: 07/11/21 Time: 06:29 Results - Labs Lab/Micro Results: Lab Results-Last 24 Hours 07/10/21 07/10/21 07/10/21 Range/Units 22:24 22:24 22:24 WBC 5.9 (4.0-10.5) K/mm3 RBC 3.43 L (4.1-5.4) M/mm3 Hgb 10.5 L (12.0-16.0) gm/dl Hct 31.4 L (35-47) % MCV 91.5 (78-100) fl MCH 30.6 (26-32) pg MCHC 33.4 (32-36) g/dl RDW 16.5 H (11.5-14.0) % Plt Count 143 L (150-450) K/mm3 MPV 10.0 (7.5-11.0) fl Segmented Neutrophils 80 H (36.0-66.0) % Lymphocytes (Manual) 11 L (24-44) % Monocytes (Manual) 9 (0.0-12.0) % Platelet Estimate DECREASED (NORMAL) RBC Morphology ABNORMAL Polychromasia 1+ Anisocytosis 2+ Sodium 135 L (137-145) mmol/L Potassium 5.0 (3.5-5.1) mmol/L Chloride 105 (98-107) mmol/L Carbon Dioxide 19 L (22-30) mmol/L Anion Gap 16.5 H (5-15) MEQ/L BUN 78 H (7-17) mg/dL Creatinine 2.40 H (0.52-1.04) mg/dL Estimated GFR 20.9 ML/MIN Glucose 150 H (74-106) mg/dL POC Glucometer (74 to 106) mg/dL Lactic Acid (0.4-2.0) Calcium 9.5 (8.4-10.2) mg/dL Total Bilirubin 1.40 H (0.2-1.3) mg/dL AST 74 H (14-36) U/L ALT 69 H (0-35) U/L Alkaline Phosphatase 556 H (38-126) U/L Ammonia (9-30) umol/L Troponin I (0.000-0.034) ng/mL Serum Total Protein 6.9 (6.3-8.2) g/dL Albumin 3.5 (3.5-5.0) g/dL Prealbumin (17.6-36.0) mg/dL Amylase 72 (30-110) U/L Lipase 186 (23-300) U/L Thyroxine (T4) (5.53-10.96) ug/dL TSH 3rd Generation (0.47-4.68) mIU/L Urine Color YELLOW (YELLOW) Urine Appearance CLEAR (CLEAR) Urine pH 6.0 (5-6) Ur Specific [place] 1.014 (1.005-1.025) Urine Protein 100 (Negative) Urine Ketones NEGATIVE (NEGATIVE) Urine Blood NEGATIVE (0-5) Karl/ul Urine Nitrite NEGATIVE (NEGATIVE) Urine Bilirubin NEGATIVE (NEGATIVE) Urine Urobilinogen NEGATIVE (0-1) mg/dL Ur Leukocyte Esterase NEGATIVE (NEGATIVE) Urine WBC (Auto) 3-5 (0-5) /HPF Urine RBC (Auto) 0-2 (0-2) /HPF U Hyaline Cast (Auto) 6-10 (0-2) /LPF U Epithel Cells (Auto) NONE (FEW) /HPF Urine Bacteria (Auto) NONE (NEGATIVE) /HPF Urine Mucus (Auto) SLIGHT (NEGATIVE) /HPF Urine Culture Reflexed NO (NO) Urine Glucose >=500 (NEGATIVE) mg/dL Urine Opiates Level (NEGATIVE) Ur Methadone (NEGATIVE) Urine Barbiturates (NEGATIVE) Ur Phencyclidine (PCP) (NEGATIVE) Urine Amphetamine (NEGATIVE) U Benzodiazepine Level (NEGATIVE) Urine Cocaine (NEGATIVE) Urine Marijuana (THC) (NEGATIVE) Ethyl Alcohol (0-10) mg/dL SARS-CoV-2 (PCR) (NEGATIVE) 07/10/21 07/10/21 07/10/21 Range/Units 22:24 22:24 22:24 WBC (4.0-10.5) K/mm3 RBC (4.1-5.4) M/mm3 Hgb (12.0-16.0) gm/dl Hct (35-47) % MCV (78-100) fl MCH (26-32) pg MCHC (32-36) g/dl RDW (11.5-14.0) % Plt Count (150-450) K/mm3 MPV (7.5-11.0) fl Segmented Neutrophils (36.0-66.0) % Lymphocytes (Manual) (24-44) % Monocytes (Manual) (0.0-12.0) % Platelet Estimate (NORMAL) RBC Morphology Polychromasia Anisocytosis Sodium (137-145) mmol/L Potassium (3.5-5.1) mmol/L Chloride (98-107) mmol/L Carbon Dioxide (22-30) mmol/L Anion Gap (5-15) MEQ/L BUN (7-17) mg/dL Creatinine (0.52-1.04) mg/dL Estimated GFR ML/MIN Glucose (74-106) mg/dL POC Glucometer (74 to 106) mg/dL Lactic Acid (0.4-2.0) Calcium (8.4-10.2) mg/dL Total Bilirubin (0.2-1.3) mg/dL AST (14-36) U/L ALT (0-35) U/L Alkaline Phosphatase (38-126) U/L Ammonia (9-30) umol/L Troponin I 0.040 H* (0.000-0.034) ng/mL Serum Total Protein (6.3-8.2) g/dL Albumin (3.5-5.0) g/dL Prealbumin (17.6-36.0) mg/dL Amylase (30-110) U/L Lipase (23-300) U/L Thyroxine (T4) 5.43 L (5.53-10.96) ug/dL TSH 3rd Generation 0.204 L (0.47-4.68) mIU/L Urine Color (YELLOW) Urine Appearance (CLEAR) Urine pH (5-6) Ur Specific [place] (1.005-1.025) Urine Protein (Negative) Urine Ketones (NEGATIVE) Urine Blood (0-5) Karl/ul Urine Nitrite (NEGATIVE) Urine Bilirubin (NEGATIVE) Urine Urobilinogen (0-1) mg/dL Ur Leukocyte Esterase (NEGATIVE) Urine WBC (Auto) (0-5) /HPF Urine RBC (Auto) (0-2) /HPF U Hyaline Cast (Auto) (0-2) /LPF U Epithel Cells (Auto) (FEW) /HPF Urine Bacteria (Auto) (NEGATIVE) /HPF Urine Mucus (Auto) (NEGATIVE) /HPF Urine Culture Reflexed (NO) Urine Glucose (NEGATIVE) mg/dL Urine Opiates Level (NEGATIVE) Ur Methadone (NEGATIVE) Urine Barbiturates (NEGATIVE) Ur Phencyclidine (PCP) (NEGATIVE) Urine Amphetamine (NEGATIVE) U Benzodiazepine Level (NEGATIVE) Urine Cocaine (NEGATIVE) Urine Marijuana (THC) (NEGATIVE) Ethyl Alcohol (0-10) mg/dL SARS-CoV-2 (PCR) (NEGATIVE) 07/10/21 07/10/21 07/10/21 Range/Units 23:30 23:35 Unknown WBC (4.0-10.5) K/mm3 RBC (4.1-5.4) M/mm3 Hgb (12.0-16.0) gm/dl Hct (35-47) % MCV (78-100) fl MCH (26-32) pg MCHC (32-36) g/dl RDW (11.5-14.0) % Plt Count (150-450) K/mm3 MPV (7.5-11.0) fl Segmented Neutrophils (36.0-66.0) % Lymphocytes (Manual) (24-44) % Monocytes (Manual) (0.0-12.0) % Platelet Estimate (NORMAL) RBC Morphology Polychromasia Anisocytosis Sodium (137-145) mmol/L Potassium (3.5-5.1) mmol/L Chloride (98-107) mmol/L Carbon Dioxide (22-30) mmol/L Anion Gap (5-15) MEQ/L BUN (7-17) mg/dL Creatinine (0.52-1.04) mg/dL Estimated GFR ML/MIN Glucose (74-106) mg/dL POC Glucometer (74 to 106) mg/dL Lactic Acid 1.7 (0.4-2.0) Calcium (8.4-10.2) mg/dL Total Bilirubin (0.2-1.3) mg/dL AST (14-36) U/L ALT (0-35) U/L Alkaline Phosphatase (38-126) U/L Ammonia 113 H (9-30) umol/L Troponin I (0.000-0.034) ng/mL Serum Total Protein (6.3-8.2) g/dL Albumin (3.5-5.0) g/dL Prealbumin (17.6-36.0) mg/dL Amylase (30-110) U/L Lipase (23-300) U/L Thyroxine (T4) (5.53-10.96) ug/dL TSH 3rd Generation (0.47-4.68) mIU/L Urine Color (YELLOW) Urine Appearance (CLEAR) Urine pH (5-6) Ur Specific [place] (1.005-1.025) Urine Protein (Negative) Urine Ketones (NEGATIVE) Urine Blood (0-5) Karl/ul Urine Nitrite (NEGATIVE) Urine Bilirubin (NEGATIVE) Urine Urobilinogen (0-1) mg/dL Ur Leukocyte Esterase (NEGATIVE) Urine WBC (Auto) (0-5) /HPF Urine RBC (Auto) (0-2) /HPF U Hyaline Cast (Auto) (0-2) /LPF U Epithel Cells (Auto) (FEW) /HPF Urine Bacteria (Auto) (NEGATIVE) /HPF Urine Mucus (Auto) (NEGATIVE) /HPF Urine Culture Reflexed (NO) Urine Glucose (NEGATIVE) mg/dL Urine Opiates Level NEGATIVE (NEGATIVE) Ur Methadone NEGATIVE (NEGATIVE) Urine Barbiturates NEGATIVE (NEGATIVE) Ur Phencyclidine (PCP) NEGATIVE (NEGATIVE) Urine Amphetamine NEGATIVE (NEGATIVE) U Benzodiazepine Level NEGATIVE (NEGATIVE) Urine Cocaine NEGATIVE (NEGATIVE) Urine Marijuana (THC) NEGATIVE (NEGATIVE) Ethyl Alcohol (0-10) mg/dL SARS-CoV-2 (PCR) (NEGATIVE) 07/11/21 07/11/21 07/11/21 Range/Units 01:00 01:00 03:21 WBC (4.0-10.5) K/mm3 RBC (4.1-5.4) M/mm3 Hgb (12.0-16.0) gm/dl Hct (35-47) % MCV (78-100) fl MCH (26-32) pg MCHC (32-36) g/dl RDW (11.5-14.0) % Plt Count (150-450) K/mm3 MPV (7.5-11.0) fl Segmented Neutrophils (36.0-66.0) % Lymphocytes (Manual) (24-44) % Monocytes (Manual) (0.0-12.0) % Platelet Estimate (NORMAL) RBC Morphology Polychromasia Anisocytosis Sodium (137-145) mmol/L Potassium (3.5-5.1) mmol/L Chloride (98-107) mmol/L Carbon Dioxide (22-30) mmol/L Anion Gap (5-15) MEQ/L BUN (7-17) mg/dL Creatinine (0.52-1.04) mg/dL Estimated GFR ML/MIN Glucose (74-106) mg/dL POC Glucometer (74 to 106) mg/dL Lactic Acid (0.4-2.0) Calcium (8.4-10.2) mg/dL Total Bilirubin (0.2-1.3) mg/dL AST (14-36) U/L ALT (0-35) U/L Alkaline Phosphatase (38-126) U/L Ammonia (9-30) umol/L Troponin I 0.042 H* (0.000-0.034) ng/mL Serum Total Protein (6.3-8.2) g/dL Albumin (3.5-5.0) g/dL Prealbumin (17.6-36.0) mg/dL Amylase (30-110) U/L Lipase (23-300) U/L Thyroxine (T4) (5.53-10.96) ug/dL TSH 3rd Generation (0.47-4.68) mIU/L Urine Color (YELLOW) Urine Appearance (CLEAR) Urine pH (5-6) Ur Specific [place] (1.005-1.025) Urine Protein (Negative) Urine Ketones (NEGATIVE) Urine Blood (0-5) Karl/ul Urine Nitrite (NEGATIVE) Urine Bilirubin (NEGATIVE) Urine Urobilinogen (0-1) mg/dL Ur Leukocyte Esterase (NEGATIVE) Urine WBC (Auto) (0-5) /HPF Urine RBC (Auto) (0-2) /HPF U Hyaline Cast (Auto) (0-2) /LPF U Epithel Cells (Auto) (FEW) /HPF Urine Bacteria (Auto) (NEGATIVE) /HPF Urine Mucus (Auto) (NEGATIVE) /HPF Urine Culture Reflexed (NO) Urine Glucose (NEGATIVE) mg/dL Urine Opiates Level (NEGATIVE) Ur Methadone (NEGATIVE) Urine Barbiturates (NEGATIVE) Ur Phencyclidine (PCP) (NEGATIVE) Urine Amphetamine (NEGATIVE) U Benzodiazepine Level (NEGATIVE) Urine Cocaine (NEGATIVE) Urine Marijuana (THC) (NEGATIVE) Ethyl Alcohol < 10 (0-10) mg/dL SARS-CoV-2 (PCR) NEGATIVE (NEGATIVE) 07/11/21 07/11/21 07/11/21 Range/Units 05:00 07:10 07:10 WBC (4.0-10.5) K/mm3 RBC (4.1-5.4) M/mm3 Hgb (12.0-16.0) gm/dl Hct (35-47) % MCV (78-100) fl MCH (26-32) pg MCHC (32-36) g/dl RDW (11.5-14.0) % Plt Count (150-450) K/mm3 MPV (7.5-11.0) fl Segmented Neutrophils (36.0-66.0) % Lymphocytes (Manual) (24-44) % Monocytes (Manual) (0.0-12.0) % Platelet Estimate (NORMAL) RBC Morphology Polychromasia Anisocytosis Sodium (137-145) mmol/L Potassium (3.5-5.1) mmol/L Chloride (98-107) mmol/L Carbon Dioxide (22-30) mmol/L Anion Gap (5-15) MEQ/L BUN (7-17) mg/dL Creatinine (0.52-1.04) mg/dL Estimated GFR ML/MIN Glucose (74-106) mg/dL POC Glucometer (74 to 106) mg/dL Lactic Acid (0.4-2.0) Calcium (8.4-10.2) mg/dL Total Bilirubin (0.2-1.3) mg/dL AST (14-36) U/L ALT (0-35) U/L Alkaline Phosphatase (38-126) U/L Ammonia 117 H (9-30) umol/L Troponin I 0.046 H* 0.053 H* (0.000-0.034) ng/mL Serum Total Protein (6.3-8.2) g/dL Albumin (3.5-5.0) g/dL Prealbumin (17.6-36.0) mg/dL Amylase (30-110) U/L Lipase (23-300) U/L Thyroxine (T4) (5.53-10.96) ug/dL TSH 3rd Generation (0.47-4.68) mIU/L Urine Color (YELLOW) Urine Appearance (CLEAR) Urine pH (5-6) Ur Specific [place] (1.005-1.025) Urine Protein (Negative) Urine Ketones (NEGATIVE) Urine Blood (0-5) Karl/ul Urine Nitrite (NEGATIVE) Urine Bilirubin (NEGATIVE) Urine Urobilinogen (0-1) mg/dL Ur Leukocyte Esterase (NEGATIVE) Urine WBC (Auto) (0-5) /HPF Urine RBC (Auto) (0-2) /HPF U Hyaline Cast (Auto) (0-2) /LPF U Epithel Cells (Auto) (FEW) /HPF Urine Bacteria (Auto) (NEGATIVE) /HPF Urine Mucus (Auto) (NEGATIVE) /HPF Urine Culture Reflexed (NO) Urine Glucose (NEGATIVE) mg/dL Urine Opiates Level (NEGATIVE) Ur Methadone (NEGATIVE) Urine Barbiturates (NEGATIVE) Ur Phencyclidine (PCP) (NEGATIVE) Urine Amphetamine (NEGATIVE) U Benzodiazepine Level (NEGATIVE) Urine Cocaine (NEGATIVE) Urine Marijuana (THC) (NEGATIVE) Ethyl Alcohol (0-10) mg/dL SARS-CoV-2 (PCR) (NEGATIVE) 07/11/21 07/11/21 07/11/21 Range/Units 07:10 07:10 07:48 WBC 8.5 (4.0-10.5) K/mm3 RBC 3.51 L (4.1-5.4) M/mm3 Hgb 10.7 L (12.0-16.0) gm/dl Hct 32.2 L (35-47) % MCV 91.7 (78-100) fl MCH 30.5 (26-32) pg MCHC 33.2 (32-36) g/dl RDW 16.5 H (11.5-14.0) % Plt Count 171 (150-450) K/mm3 MPV 9.9 (7.5-11.0) fl Segmented Neutrophils (36.0-66.0) % Lymphocytes (Manual) (24-44) % Monocytes (Manual) (0.0-12.0) % Platelet Estimate (NORMAL) RBC Morphology Polychromasia Anisocytosis Sodium 138 (137-145) mmol/L Potassium 4.5 (3.5-5.1) mmol/L Chloride 109 H (98-107) mmol/L Carbon Dioxide 17 L (22-30) mmol/L Anion Gap 15.7 H (5-15) MEQ/L BUN 81 H (7-17) mg/dL Creatinine 2.22 H (0.52-1.04) mg/dL Estimated GFR 22.8 ML/MIN Glucose 189 H (74-106) mg/dL POC Glucometer 179 H (74 to 106) mg/dL Lactic Acid (0.4-2.0) Calcium 10.0 (8.4-10.2) mg/dL Total Bilirubin (0.2-1.3) mg/dL AST (14-36) U/L ALT (0-35) U/L Alkaline Phosphatase (38-126) U/L Ammonia (9-30) umol/L Troponin I (0.000-0.034) ng/mL Serum Total Protein (6.3-8.2) g/dL Albumin (3.5-5.0) g/dL Prealbumin 22.19 (17.6-36.0) mg/dL Amylase (30-110) U/L Lipase (23-300) U/L Thyroxine (T4) (5.53-10.96) ug/dL TSH 3rd Generation (0.47-4.68) mIU/L Urine Color (YELLOW) Urine Appearance (CLEAR) Urine pH (5-6) Ur Specific [place] (1.005-1.025) Urine Protein (Negative) Urine Ketones (NEGATIVE) Urine Blood (0-5) Karl/ul Urine Nitrite (NEGATIVE) Urine Bilirubin (NEGATIVE) Urine Urobilinogen (0-1) mg/dL Ur Leukocyte Esterase (NEGATIVE) Urine WBC (Auto) (0-5) /HPF Urine RBC (Auto) (0-2) /HPF U Hyaline Cast (Auto) (0-2) /LPF U Epithel Cells (Auto) (FEW) /HPF Urine Bacteria (Auto) (NEGATIVE) /HPF Urine Mucus (Auto) (NEGATIVE) /HPF Urine Culture Reflexed (NO) Urine Glucose (NEGATIVE) mg/dL Urine Opiates Level (NEGATIVE) Ur Methadone (NEGATIVE) Urine Barbiturates (NEGATIVE) Ur Phencyclidine (PCP) (NEGATIVE) Urine Amphetamine (NEGATIVE) U Benzodiazepine Level (NEGATIVE) Urine Cocaine (NEGATIVE) Urine Marijuana (THC) (NEGATIVE) Ethyl Alcohol (0-10) mg/dL SARS-CoV-2 (PCR) (NEGATIVE) Microbiology 07/10/21 22:24 Urine Culture - Preliminary Catherized NO GROWTH TO DATE Accuchecks Date 07/11/21 - Radiology Impressions Radiology Exams & Impressions: Radiology Procedures Category Date Time Status CERVICAL SPINE WO CONTRAST [CT] Routine Exams 07/11/21 01:09 Taken CHEST 1 VIEW (PORTABLE) Stat Exams 07/10/21 21:50 Taken FACIAL BONES WO CONTRAST [CT] Routine Exams 07/11/21 01:09 Taken HEAD WITHOUT CONTRAST [CT] Routine Exams 07/11/21 01:09 Taken MRI BRAIN W/O CONTRAST [MRI] Routine Exams 07/11/21 08:44 Ordered - Other Procedures and Tests Respiratory Therapy 07/11/21 05:52 EKG REPEAT IN AM Respiratory Therapy Consult ROUTINE Assessment/Plan (1) Unresponsive state Current Visit: Yes Status: Acute Assessment & Plan: there has been concern with family since recent fall about 1 month ago and hospitalization in [facility], there is concern for a stroke since that incident. plan to try to obtain MRI brain to further evaluate if patient is able to cooperate. I discussed her states with severe cardiomyopathy and current neurologic state, family wishes to keep her a full code at this time but will consider going forward. (2) Hepatic encephalopathy Current Visit: Yes Status: Acute Assessment & Plan: lactulose ordered via NG Code(s): K72.90 - HEPATIC FAILURE, UNSPECIFIED WITHOUT COMA (3) Acute on chronic renal insufficiency Current Visit: Yes Status: Acute Assessment & Plan: sees Dr Vargas, will consult Code(s): N28.9 - DISORDER OF KIDNEY AND URETER, UNSPECIFIED; N18.9 - CHRONIC KIDNEY DISEASE, UNSPECIFIED (4) Elevated troponin Current Visit: Yes Status: Acute Assessment & Plan: could be secondary to renal insufficiency, there are some nonspecific ekg changes. there has been some concern of bleeding from unknown source per ER/EMS run report so will not anticoagulate at this time. Code(s): R77.8 - OTHER SPECIFIED ABNORMALITIES OF PLASMA PROTEINS
--- NOTE | 2021-07-11 09:09 | XRAY ---
Indication: Cough. Comparison: October 07, 2020. Portable chest again hyperinflated and now slightly rotated. Lungs are now clear. Heart remains borderline enlarged. Bony thorax intact again with mild osteopenia and degenerative changes. Impression: Nonacute chest with chronic features.
--- NOTE | 2021-07-11 09:12 | XRAY ---
Indication: Found unresponsive. Suspect fall/trauma. Multiple contiguous axial images obtained through the head without contrast. Comparison: October 04, 2020. Again age-appropriate global atrophy and minimal periventricular degenerative micro-ischemia bilaterally. No acute intracranial hemorrhage, abnormal extra-axial fluid collection, or mass effect. Fourth ventricle is midline without hydrocephalus. Bony calvarium intact. Visualized paranasal sinuses and mastoid air cells are clear. Impression: Continued nonacute senile brain. Comment: Preliminary interpretation made by [facility]. No critical discrepancy.
--- NOTE | 2021-07-11 09:13 | XRAY ---
Indication: Found unresponsive. Suspect fall/trauma. Multiple contiguous axial images obtained through the cervical spine. Sagittal and coronal reformatted images obtained. Comparison: None. Osseous structures demineralized consistent with patient's age. Axial images negative for acute fracture, suspicious bony lesions, or spinal canal stenosis. Minimal/mild C5-C7 degenerative endplate spurring and mild atlantoaxial degenerative arthropathy. Mild/moderate multilevel bilateral degenerative facet hypertrophy. Sagittal and coronal reformatted images demonstrates normal alignment. Minimal/mild multilevel degenerative disc space narrowing. No acute compression fracture, subluxation, or jumped facet. Normal appearing craniocervical junction. Visualized noncontrasted soft tissues demonstrates mild bilateral carotid calcifications and diffusely heterogeneous thyroid gland. Lung apices are clear. Impression: 1. Negative acute fracture/subluxation. 2. Osteopenia and multilevel degenerative changes. 3. Heterogeneous thyroid gland better evaluated with sonogram if clinically warranted. Comment: Preliminary interpretation made by [facility]. No critical discrepancy.
--- NOTE | 2021-07-11 09:16 | XRAY ---
Indication: Found unresponsive. Suspect fall/trauma. Multiple contiguous axial images obtained through the facial bones. Sagittal and coronal reformatted images obtained. Comparison: None. Osseous structures demineralized consistent with patient's age. Beam artifact from upper dental hardware. No acute fracture, suspicious bony lesions, or radiopaque foreign body. Orbits including roof, acosta, and floors are intact. Paranasal sinuses and nasal passages are clear. Visualized noncontrasted soft tissues are unremarkable. CT head and CT cervical spine reported separately. Impression: Osteopenia. Remaining CT facial bones negative. Comment: Preliminary interpretation made by [facility]. No critical discrepancy.
[2021-07-11] MEDS ORDERED: PROTONIX 40 MG IV IV SCH (10:00)
[2021-07-11] MEDS: LACTULOSE 20 GM/30ML UD CUP PO SCH ×2 (10:01→14:27)
[2021-07-11] MEDS: Sodium Chloride 0.9% 1000 ML 1,000 ML IV SCH (10:19)
--- NOTE | 2021-07-11 15:40 | XRAY ---
Indication: Pain and bruising following fall. Comparison: None 2 AP views right shoulder demonstrates nondisplaced minimally angulated humeral neck fracture. Elsewhere osteopenia and moderate AC degenerative arthropathy.
[2021-07-11 16:02] LABS: Hematocrit 30.5 % (35-47); Hemoglobin 10.1 gm/dl (12.0-16.0); Mean Cell Volume 92.4 fl (78-100); Mean Corpuscular Hemoglobin 30.6 pg (26-32); Mean Corpuscular Hgb Concent. 33.1 g/dl (32-36); Mean Platelet Volume 9.6 fl (7.5-11.0); Platelet Count 152 K/mm3 (150-450); Red Cell Distribution Width 16.8 % (11.5-14.0); White Blood Count 6.7 K/mm3 (4.0-10.5)
[2021-07-11] MEDS: PROTONIX 40 MG IV*** 80 MG in Sodium Chloride 0.9% 500 ML 500 ML IV SCH (16:38)
[2021-07-11] MEDS ORDERED: Enulose 10 GM/15 ML RC SCH (17:00)
[2021-07-11] MEDS: LACTULOSE 20 GM/30ML UD CUP NG SCH ×2 (17:06→22:25)
[2021-07-11] MEDS: HUMULIN R SQ PRN (18:03)
[2021-07-12] MEDS: Sodium Chloride 0.9% 1000 ML 1,000 ML IV SCH ×2 (00:47→09:36)
[2021-07-12] MEDS: PROTONIX 40 MG IV*** 80 MG in Sodium Chloride 0.9% 500 ML 500 ML IV SCH ×3 (02:46→21:36)
[2021-07-12] MEDS: FEVERALL 650 MG PR PRN (06:23)
[2021-07-12 06:55] LABS: Hematocrit 27.5 % (35-47); Hemoglobin 8.9 gm/dl (12.0-16.0); Mean Cell Volume 94.2 fl (78-100); Mean Corpuscular Hemoglobin 30.5 pg (26-32); Mean Corpuscular Hgb Concent. 32.4 g/dl (32-36); Mean Platelet Volume 9.9 fl (7.5-11.0); Platelet Count 137 K/mm3 (150-450); Red Blood Count 2.92 M/mm3 (4.1-5.4); Red Cell Distribution Width 16.8 % (11.5-14.0); White Blood Count 6.8 K/mm3 (4.0-10.5)
[2021-07-12 08:11] LABS: ALBUMIN 3.1 g/dL (3.5-5.0); ANION GAP 13.3 MEQ/L (5-15); BILIRUBIN,TOTAL 1.2 mg/dL (0.2-1.3); Calcium 9.5 mg/dL (8.4-10.2); Creatinine 1 1.76 mg/dL (0.52-1.04); EST GLOMERULAR FILTRATION RATE 29.8 ML/MIN; Total Protein 6.4 g/dL (6.3-8.2)
[2021-07-12] MEDS: LACTULOSE 20 GM/30ML UD CUP NG SCH ×4 (09:05→22:38)
[2021-07-12] MEDS: MORPHINE SULFATE 2 MG INJ IV PRN ×3 (09:44→14:47)
[2021-07-12] MEDS ORDERED: ELIQUIS 2.5 MG TABLET ONE (17:17)
[2021-07-13] MEDS: Sodium Chloride 0.9% 1000 ML 1,000 ML IV SCH ×2 (02:13→13:32)
[2021-07-13] MEDS: MORPHINE SULFATE 2 MG INJ IV PRN ×2 (02:24→21:04)
[2021-07-13 06:07] LABS: Hematocrit 25.6 % (35-47); Hemoglobin 8.3 gm/dl (12.0-16.0); Mean Cell Volume 96.2 fl (78-100); Mean Corpuscular Hemoglobin 31.2 pg (26-32); Mean Corpuscular Hgb Concent. 32.4 g/dl (32-36); Mean Platelet Volume 9.6 fl (7.5-11.0); Platelet Count 103 K/mm3 (150-450); Red Blood Count 2.66 M/mm3 (4.1-5.4); Red Cell Distribution Width 17.2 % (11.5-14.0); White Blood Count 3.7 K/mm3 (4.0-10.5)
[2021-07-13 06:12] LABS: ALBUMIN 2.5 g/dL (3.5-5.0); ANION GAP 9.5 MEQ/L (5-15); Calcium 8.7 mg/dL (8.4-10.2); Creatinine 1 1.3 mg/dL (0.52-1.04); EST GLOMERULAR FILTRATION RATE 42.3 ML/MIN; Potassium 3.8 mmol/L (3.5-5.1); Total Protein 5.4 g/dL (6.3-8.2)
[2021-07-13] MEDS: PROTONIX 40 MG IV*** 80 MG in Sodium Chloride 0.9% 500 ML 500 ML IV SCH (08:56)
[2021-07-13] MEDS: LACTULOSE 20 GM/30ML UD CUP NG SCH ×4 (09:02→21:04)
[2021-07-13] MEDS: PROTONIX 40 MG IV IV SCH (09:05)
[2021-07-14] MEDS: Sodium Chloride 0.9% 1000 ML 1,000 ML IV SCH ×2 (01:44→14:50)
[2021-07-14 05:28] LABS: ALBUMIN 2.4 g/dL (3.5-5.0); ANION GAP 8.4 MEQ/L (5-15); BILIRUBIN,TOTAL 1.2 mg/dL (0.2-1.3); Calcium 8.4 mg/dL (8.4-10.2); Creatinine 1 1.09 mg/dL (0.52-1.04); EST GLOMERULAR FILTRATION RATE 51.9 ML/MIN; Total Protein 5.2 g/dL (6.3-8.2)
[2021-07-14 05:35] LABS: Hematocrit 25.5 % (35-47); Hemoglobin 8.3 gm/dl (12.0-16.0); Mean Cell Volume 95.5 fl (78-100); Mean Corpuscular Hemoglobin 31.1 pg (26-32); Mean Corpuscular Hgb Concent. 32.5 g/dl (32-36); Mean Platelet Volume 9.4 fl (7.5-11.0); Platelet Count 103 K/mm3 (150-450); Red Blood Count 2.67 M/mm3 (4.1-5.4); Red Cell Distribution Width 17.2 % (11.5-14.0); White Blood Count 4.1 K/mm3 (4.0-10.5)
--- NOTE | 2021-07-14 09:02 | PCM.NOTE ---
Date and Time: 07/14/21 0859 Subjective Assessment: patient is alert now, tolerating po and doing much better. she has pain in the right arm, otherwise feels well and wants to go home. lives alone but states her brother is close by. she has fallen multiple times including 1 month ago Objective Exam General Appearance: no apparent distress Neurologic Exam: alert, cooperative Wound Assessment: Skin/Wound Assessment Wound/Incision Assessment Start: 07/11/21 06:22 Text: Status: Active Freq: Q6H Protocol: Document 07/14/21 06:00 KNW (Rec: 07/14/21 06:19 KNW [id number]) Wound/Incision Assessment Posterior Coccyx Wound Assessment Shift Assessment Wound Type Skin Tear Wound Stage Stage I Drainage Amount None Drainage Odor None/Absent General Appearance Open to air,Clean/Dry Surrounding Tissue Dark Red Comment barrier cream applied, frequent repositioining Wound Photo Photo Taken No Respiratory Exam: normal breath sounds, lungs clear, No respiratory distress Cardiovascular Exam: regular rate/rhythm, normal heart sounds Gastrointestinal/Abdomen Exam: soft, No tenderness, No mass Extremity Exam: other (right arm decr rom secondary to upper arm pain) OBJECTIVE DATA Vital Signs: Vital Signs - 24 hr Temp Pulse Resp BP Pulse Ox 07/14/21 07:47 97.7 F 97 H 16 125/62 95 07/14/21 04:00 97.7 F 97 H 18 123/59 99 07/14/21 00:00 97.7 F 96 H 16 117/56 99 07/13/21 20:00 97.5 F 90 16 117/58 100 07/13/21 16:00 97.5 F 85 16 125/61 99 07/13/21 12:00 97.5 F 99 H 18 136/60 100 07/13/21 11:58 16 Pain Assessment - Last Documented Pain Intensity 6 Pain Scale Used 0-10 Pain Scale Intake and Output: Intake & Output 07/11/21 07/12/21 07/13/21 07/14/21 11:59 11:59 11:59 11:59 Intake Total 320 3863 3072 3266 Output Total 700 1525 1630 1450 Balance -380 2338 1442 1816 Weight 53 kg 58.3 kg 60.9 kg 60.9 kg Lab Results: Lab Results-Last 24 Hours 10/12/2907/13/21 07/13/21 Range/Units 05:30 11:47 16:20 WBC (4.0-10.5) K/mm3 RBC (4.1-5.4) M/mm3 Hgb (12.0-16.0) gm/dl Hct (35-47) % MCV (78-100) fl MCH (26-32) pg MCHC (32-36) g/dl RDW (11.5-14.0) % Plt Count (150-450) K/mm3 MPV (7.5-11.0) fl Sodium (137-145) mmol/L Potassium (3.5-5.1) mmol/L Chloride (98-107) mmol/L Carbon Dioxide (22-30) mmol/L Anion Gap (5-15) MEQ/L BUN (7-17) mg/dL Creatinine (0.52-1.04) mg/dL Estimated GFR ML/MIN Glucose (74-106) mg/dL POC Glucometer 109 H 101 (74 to 106) mg/dL Hemoglobin A1c 6.98 H (4.5-6.0) % Calcium (8.4-10.2) mg/dL Total Bilirubin (0.2-1.3) mg/dL AST (14-36) U/L ALT (0-35) U/L Alkaline Phosphatase (38-126) U/L Ammonia (9-30) umol/L Serum Total Protein (6.3-8.2) g/dL Albumin (3.5-5.0) g/dL 07/13/21 07/14/21 07/14/21 Range/Units 20:48 04:47 04:47 WBC 4.1 (4.0-10.5) K/mm3 RBC 2.67 L (4.1-5.4) M/mm3 Hgb 8.3 L (12.0-16.0) gm/dl Hct 25.5 L (35-47) % MCV 95.5 (78-100) fl MCH 31.1 (26-32) pg MCHC 32.5 (32-36) g/dl RDW 17.2 H (11.5-14.0) % Plt Count 103 L (150-450) K/mm3 MPV 9.4 (7.5-11.0) fl Sodium 139 (137-145) mmol/L Potassium 4.0 (3.5-5.1) mmol/L Chloride 117 H (98-107) mmol/L Carbon Dioxide 18 L (22-30) mmol/L Anion Gap 8.4 (5-15) MEQ/L BUN 28 H (7-17) mg/dL Creatinine 1.09 H (0.52-1.04) mg/dL Estimated GFR 51.9 ML/MIN Glucose 101 (74-106) mg/dL POC Glucometer 134 H (74 to 106) mg/dL Hemoglobin A1c (4.5-6.0) % Calcium 8.4 (8.4-10.2) mg/dL Total Bilirubin 1.20 (0.2-1.3) mg/dL AST 112 H (14-36) U/L ALT 74 H (0-35) U/L Alkaline Phosphatase 512 H (38-126) U/L Ammonia (9-30) umol/L Serum Total Protein 5.2 L (6.3-8.2) g/dL Albumin 2.4 L (3.5-5.0) g/dL 07/14/21 07/14/21 Range/Units 04:47 07:19 WBC (4.0-10.5) K/mm3 RBC (4.1-5.4) M/mm3 Hgb (12.0-16.0) gm/dl Hct (35-47) % MCV (78-100) fl MCH (26-32) pg MCHC (32-36) g/dl RDW (11.5-14.0) % Plt Count (150-450) K/mm3 MPV (7.5-11.0) fl Sodium (137-145) mmol/L Potassium (3.5-5.1) mmol/L Chloride (98-107) mmol/L Carbon Dioxide (22-30) mmol/L Anion Gap (5-15) MEQ/L BUN (7-17) mg/dL Creatinine (0.52-1.04) mg/dL Estimated GFR ML/MIN Glucose (74-106) mg/dL POC Glucometer 84 (74 to 106) mg/dL Hemoglobin A1c (4.5-6.0) % Calcium (8.4-10.2) mg/dL Total Bilirubin (0.2-1.3) mg/dL AST (14-36) U/L ALT (0-35) U/L Alkaline Phosphatase (38-126) U/L Ammonia < 9 L (9-30) umol/L Serum Total Protein (6.3-8.2) g/dL Albumin (3.5-5.0) g/dL Assessment/Plan (1) Hepatic encephalopathy Current Visit: Yes Status: Acute Assessment & Plan: resolving, will advance diet Code(s): K72.90 - HEPATIC FAILURE, UNSPECIFIED WITHOUT COMA (2) Acute on chronic renal insufficiency Current Visit: Yes Status: Acute Code(s): N28.9 - DISORDER OF KIDNEY AND URETER, UNSPECIFIED; N18.9 - CHRONIC KIDNEY DISEASE, UNSPECIFIED (3) Elevated troponin Current Visit: Yes Status: Acute Code(s): R77.8 - OTHER SPECIFIED ABNORMALITIES OF PLASMA PROTEINS (4) Humerus fracture Current Visit: Yes Status: Acute Code(s): S42.309A - UNSP FRACTURE OF SHAFT OF HUMERUS, UNSP ARM, INIT (5) Cirrhosis Current Visit: Yes Status: Acute (6) Upper GI bleed Current Visit: Yes Status: Acute Assessment & Plan: h/h stable, advance diet and repeat labs. I am concerned about her ability to live alone, especially with her history of recurrent falls and right humerus fracture. consult [employer] school social science teacher regarding disposition. Code(s): K92.2 - GASTROINTESTINAL HEMORRHAGE, UNSPECIFIED
[2021-07-14] MEDS: LACTULOSE 20 GM/30ML UD CUP PO SCH ×3 (10:43→14:50)
[2021-07-14] MEDS: PROTONIX 40 MG IV IV SCH (11:08)
[2021-07-14] MEDS ORDERED: Enulose 10 GM/15 ML PO SCH (22:00)
[2021-07-15] MEDS: Sodium Chloride 0.9% 1000 ML 1,000 ML IV SCH ×2 (02:54→16:02)
[2021-07-15 05:33] LABS: Hematocrit 27.5 % (35-47); Hemoglobin 9.1 gm/dl (12.0-16.0); Mean Cell Volume 93.9 fl (78-100); Mean Corpuscular Hemoglobin 31.1 pg (26-32); Mean Corpuscular Hgb Concent. 33.1 g/dl (32-36); Platelet Count 118 K/mm3 (150-450); Red Blood Count 2.93 M/mm3 (4.1-5.4); Red Cell Distribution Width 17.7 % (11.5-14.0); White Blood Count 5.7 K/mm3 (4.0-10.5)
[2021-07-15 05:54] LABS: ALBUMIN 2.4 g/dL (3.5-5.0); ANION GAP 8.4 MEQ/L (5-15); Creatinine 1 1.2 mg/dL (0.52-1.04); EST GLOMERULAR FILTRATION RATE 46.4 ML/MIN; Potassium 4.2 mmol/L (3.5-5.1); Total Protein 5.2 g/dL (6.3-8.2)
[2021-07-15] MEDS ORDERED: LACTULOSE 20 GM/30ML UD CUP PO ONE (08:00)
[2021-07-15] MEDS: PROTONIX 40 MG IV IV SCH (08:01)
[2021-07-15] MEDS: HUMULIN R SQ PRN ×2 (08:11→13:15)
[2021-07-15 08:14] LABS: A-aADO2 33; ABG HEMOGLOBIN 9.3; ABG POTASSIUM 4.2 (3.5-5.1); ABG SITE LEFT BRACHIAL; ARTERIAL BLD GAS O2 SATURATION 98.1 % (95-100); ARTERIAL BLOOD GAS FIO2 21 %; ARTERIAL BLOOD GAS PCO2 24 mmHg (35-45); ARTERIAL BLOOD GAS PO2 87 mmHg (75-100); ARTERIAL BLOOD GAS pH 7.42 (7.35-7.45); CARBOXYHEMOGLOBIN 1.2 % THgb (0.0-6.9); HCO3- 15.6 (22-28); HGB O2 SAT 95.9 g/dF (94-100); Methhemoglobin 0.9 % (1.4-1.5)
[2021-07-15] MEDS: Enulose 10 GM/15 ML PO SCH ×5 (08:16→22:25)
[2021-07-16] MEDS: Sodium Chloride 0.9% 1000 ML 1,000 ML IV SCH (05:28)
[2021-07-16 05:57] LABS: Hematocrit 27.4 % (35-47); Hemoglobin 8.9 gm/dl (12.0-16.0); Mean Cell Volume 94.5 fl (78-100); Mean Corpuscular Hemoglobin 30.7 pg (26-32); Mean Corpuscular Hgb Concent. 32.5 g/dl (32-36); Mean Platelet Volume 10.1 fl (7.5-11.0); Platelet Count 93 K/mm3 (150-450); White Blood Count 5.3 K/mm3 (4.0-10.5)
[2021-07-16 06:43] LABS: ANION GAP 8.9 MEQ/L (5-15); BLOOD UREA NITROGEN 19 mg/dL (7-17); CHLORIDE 118 mmol/L (98-107); Calcium 8.3 mg/dL (8.4-10.2); Creatinine 1 0.87 mg/dL (0.52-1.04); EST GLOMERULAR FILTRATION RATE > 60.0 ML/MIN; Glucose 143 mg/dL (74-106); Potassium 3.7 mmol/L (3.5-5.1); SODIUM 138 mmol/L (137-145)
[2021-07-16 06:45] LABS: Carbon Dioxide 16 mmol/L (22-30)
[2021-07-16 08:07] LABS: Slide Review YES
[2021-07-16] MEDS: FEVERALL 650 MG PR PRN (09:04)
[2021-07-16] MEDS: PROTONIX 40 MG IV IV SCH (09:05)
[2021-07-16] MEDS: Enulose 10 GM/15 ML PO SCH ×2 (09:05→13:51)
--- NOTE | 2021-07-16 09:10 | PCM.DS ---
Discharge Summary Date of Admission: 07/11/21 05:42 Admitting Physician: MARRY MATHEWS Consults: Consults on Case 07/11/21 08:52 Consult Nephrology ROUTINE 07/14/21 10:52 Consult Ortho ROUTINE Primary Care Provider: ROSITA SMITH Allergies Allergies No Known Drug Allergies Allergy (Unverified 07/11/21 13:28) Hospital Summary - Hospital Course Hospital Course: patient admitted under Dr Mathews and seen by me, she was found obtunded at home with elevated ammonia level, head ct was negative. family reported a fall 1 m onth ago with bruising in and injury to right upper arm, was evaluated at [facility] and no fracture, found to have humerus fracture on admission. she has improved with lactulose, also had upper gi bleed which has resolved. she is coherent, alert and oriented x 3. I have concerns about her ability to care for herself but she refuses [facility] admission, especially with sling on right arm for humerus fracture. - Vitals & Intake/Output Vital Signs: Vital Signs Temperature 97.1 F 07/16/21 08:00 Pulse Rate 94 H 07/16/21 08:00 Respiratory Rate 19 07/16/21 08:00 Blood Pressure 129/62 07/16/21 08:00 O2 Sat by Pulse Oximetry 97 07/16/21 08:00 Intake & Output: Intake & Output 07/13/21 07/14/21 07/15/21 07/16/21 11:59 11:59 11:59 11:59 Intake Total 3072 3746 3443 2599 Output Total 1630 1450 1050 1500 Balance 1442 2296 2393 1099 Weight 60.9 kg 60.9 kg 62.6 kg 62.6 kg - Lab Result Diagrams: 07/16/21 04:00 07/16/21 04:50 Lab Results-Last 24 Hrs: Lab Results-Last 24 Hours 07/15/21 07/15/21 07/15/21 Range/Units 11:51 17:16 22:40 WBC (4.0-10.5) K/mm3 RBC (4.1-5.4) M/mm3 Hgb (12.0-16.0) gm/dl Hct (35-47) % MCV (78-100) fl MCH (26-32) pg MCHC (32-36) g/dl RDW (11.5-14.0) % Plt Count (150-450) K/mm3 MPV (7.5-11.0) fl Sodium (137-145) mmol/L Potassium (3.5-5.1) mmol/L Chloride (98-107) mmol/L Carbon Dioxide (22-30) mmol/L Anion Gap (5-15) MEQ/L BUN (7-17) mg/dL Creatinine (0.52-1.04) mg/dL Estimated GFR ML/MIN Glucose (74-106) mg/dL POC Glucometer 230 H 159 H 167 H (74 to 106) mg/dL Calcium (8.4-10.2) mg/dL Ammonia (9-30) umol/L Slides for Path Review 07/16/21 07/16/21 07/16/21 Range/Units 04:00 04:50 05:17 WBC 5.3 (4.0-10.5) K/mm3 RBC 2.90 L (4.1-5.4) M/mm3 Hgb 8.9 L (12.0-16.0) gm/dl Hct 27.4 L (35-47) % MCV 94.5 (78-100) fl MCH 30.7 (26-32) pg MCHC 32.5 (32-36) g/dl RDW 18.0 H (11.5-14.0) % Plt Count 93 L (150-450) K/mm3 MPV 10.1 (7.5-11.0) fl Sodium 138 (137-145) mmol/L Potassium 3.7 (3.5-5.1) mmol/L Chloride 118 H (98-107) mmol/L Carbon Dioxide 16 L* (22-30) mmol/L Anion Gap 8.9 (5-15) MEQ/L BUN 19 H (7-17) mg/dL Creatinine 0.87 (0.52-1.04) mg/dL Estimated GFR > 60.0 ML/MIN Glucose 143 H (74-106) mg/dL POC Glucometer (74 to 106) mg/dL Calcium 8.3 L (8.4-10.2) mg/dL Ammonia < 9 L (9-30) umol/L Slides for Path Review YES 07/16/21 Range/Units 07:24 WBC (4.0-10.5) K/mm3 RBC (4.1-5.4) M/mm3 Hgb (12.0-16.0) gm/dl Hct (35-47) % MCV (78-100) fl MCH (26-32) pg MCHC (32-36) g/dl RDW (11.5-14.0) % Plt Count (150-450) K/mm3 MPV (7.5-11.0) fl Sodium (137-145) mmol/L Potassium (3.5-5.1) mmol/L Chloride (98-107) mmol/L Carbon Dioxide (22-30) mmol/L Anion Gap (5-15) MEQ/L BUN (7-17) mg/dL Creatinine (0.52-1.04) mg/dL Estimated GFR ML/MIN Glucose (74-106) mg/dL POC Glucometer 139 H (74 to 106) mg/dL Calcium (8.4-10.2) mg/dL Ammonia (9-30) umol/L Slides for Path Review Micro Results-Entire Visit: Microbiology 07/10/21 22:24 Urine Culture - Final Catherized <10K NORMAL SKIN ADRIAN PROBABLE SKIN CONTAMINANT Accuchecks Date 07/16/21 Date 07/15/21 Date 07/15/21 Date 07/15/21 Time 22:41 - Procedures and Test Procedures and Tests throughout Hospitalization: Therapy Orders & Screens 07/11/21 05:52 EKG REPEAT IN AM Comment: Respiratory Therapy Consult ROUTINE Comment: Reason For Exam: 07/14/21 09:46 PT Eval & Treat ( Order) ONCE Reason for Eval:: WEAKNESS 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, Increased troponin Discharge Exam General Appearance: no apparent distress Neurologic Exam: alert, oriented x 3 Respiratory Exam: normal breath sounds, lungs clear, No respiratory distress Cardiovascular Exam: regular rate/rhythm, normal heart sounds Gastrointestinal/Abdomen Exam: soft, No tenderness, No mass Extremity Exam: other (bruising to right upper arm, decr rom.) Skin Exam: normal color, warm, dry Wound Assessment: Skin/Wound Assessment Wound/Incision Assessment Start: 07/11/21 06:22 Text: Status: Active Freq: Q6H Protocol: Document 07/16/21 06:00 LB (Rec: 07/16/21 06:33 LB [id number]) Wound/Incision Assessment Posterior Coccyx Wound Assessment Shift Assessment Wound Type Pressure Ulcer Wound Stage Stage II Drainage Amount None Drainage Odor None/Absent General Appearance Open to air Length (cm) (cm) 1 Width (cm) (cm) 0.4 Wound Bed Greatest Portion Pale Felida Wound Bed Lesser Portion Pale Felida Surrounding Tissue Dark Red Comment barrier cream applied PRN, frequent repositioining Wound Photo Photo Taken Yes Comment: in chart Final Diagnosis/Problem List - Final Discharge Diagnosis/Problem (1) Hepatic encephalopathy Current Visit: Yes Status: Acute Assessment & Plan: improved, will need to maintain compliance with lactulose at home and have short interval followup Code(s): K72.90 - HEPATIC FAILURE, UNSPECIFIED WITHOUT COMA (2) Acute on chronic renal insufficiency Current Visit: Yes Status: Acute Code(s): N28.9 - DISORDER OF KIDNEY AND URETER, UNSPECIFIED; N18.9 - CHRONIC KIDNEY DISEASE, UNSPECIFIED (3) Elevated troponin Current Visit: Yes Status: Acute Assessment & Plan: secondary to renal function and hepatic encephalopathy, spoke with Dr Judd Donnelly and he states she has diffuse disease and is not a candidate for intervention with all of her comorbidities. Code(s): R77.8 - OTHER SPECIFIED ABNORMALITIES OF PLASMA PROTEINS (4) Humerus fracture Current Visit: Yes Status: Acute Assessment & Plan: seen by nat carlin only at this time Code(s): S42.309A - UNSP FRACTURE OF SHAFT OF HUMERUS, UNSP ARM, INIT (5) Cirrhosis Current Visit: Yes Status: Acute (6) Upper GI bleed Current Visit: Yes Status: Acute Assessment & Plan: resolved, home on PPI, hold all anticoagulants Code(s): K92.2 - GASTROINTESTINAL HEMORRHAGE, UNSPECIFIED - Discharge Disposition: Home, Self-Care Condition: Stable Prescriptions: Continue Ergocalciferol (Vitamin D2) [Vitamin D2] 50,000 unit PO Q7D Mirabegron [Myrbetriq] 50 mg PO DAILY Spironolactone 50 mg PO BID Midodrine HCl 5 mg [Proamatine 5 mg] 5 mg PO BID Levothyroxine Sodium 25 Mcg [Synthroid 25 Mcg] 25 mcg PO DAILY Biotin 1 tab PO HS PANTOPRAZOLE 40 mg Tablet [Protonix 40MG Tablet] 40 mg PO DAILY Folic Acid 1 mg [Folate 1 mg] 1 mg PO DAILY Acetaminophen 325 mg [Tylenol 325 mg] 2 tab PO Q4H PRN PRN PRN Reason: Pain Patiromer Calcium Sorbitex [Veltassa] 8.4 mg PO Q48H Glipizide 5 mg [Glucotrol 5 MG] 5 mg PO BID Lactulose 10 gm/15 ml [Enulose 10 GM/15 ML] 15 ml PO BID Bumetanide 1 mg [Bumex 1 mg] 1 mg PO DAILY Dapagliflozin Propanediol [Farxiga] 10 mg PO DAILY Sitagliptin Phosphate 50 MG [Januvia 50 MG] 50 mg PO BID Rifaximin [Xifaxan] 1 tab PO BID Discontinued Aspirin EC 81 mg [Ecotrin 81 mg] 81 mg PO DAILY Clopidogrel Bisulfate 75 mg [PLAVIX 75 MG Tablet] 75 mg PO DAILY Follow up with: RAMESH BLACKWOOD [CONSULTING PHYSICIAN] - ROSITA SMITH MD [Primary Care Provider] - 1 Week JORI DONNELLY [CONSULTING PHYSICIAN] -
[2021-07-16] MEDS ORDERED: Xifaxan 200 MG PO SCH (10:00)
[2021-07-16] MEDS: HUMULIN R SQ PRN (12:15)
[2021-07-16 12:45] VITALS: BP 122/52; PULSE 100; O2SAT 94
== END 2021-07-16 17:08 | disposition home or self-care (01) | DRG 441 ==
LOC: ED 21:36 → MED SURG 07-11 05:42
PROVIDERS: ADMIT Family Medicine; ATTEND Family Medicine
DX: K72.90 Hepatic failure, unspecified without coma (principal); G93.41 Metabolic encephalopathy; S42.309A Unspecified fracture of shaft of humerus, unspecified arm, initial encounter for closed fracture; K92.2 Gastrointestinal hemorrhage, unspecified; L89.152 Pressure ulcer of sacral region, stage 2; I13.10 Hypertensive heart and chronic kidney disease without heart failure, with stage 1 through stage 4 chronic kidney disease, or unspecified chronic kidney disease; E11.22 Type 2 diabetes mellitus with diabetic chronic kidney disease; N18.9 Chronic kidney disease, unspecified; R77.8 Other specified abnormalities of plasma proteins; K74.60 Unspecified cirrhosis of liver; R41.0 Disorientation, unspecified; Z79.899 Other long term (current) drug therapy; Z79.01 Long term (current) use of anticoagulants; J44.9 Chronic obstructive pulmonary disease, unspecified; E78.00 Pure hypercholesterolemia, unspecified; R29.6 Repeated falls; Z20.822 Contact with and (suspected) exposure to COVID-19
CPT/HCPCS: 36000; 36415; 36600; 51702; 70450; 70486; 71045; 72125; 73030; 80048; 80053; 80307; 81001; 82140; 82150; 82375; 82803; 82947; 83036; 83605; 83690; 84134; 84436; 84443; 84484; 85025; 85027; 87086; 93005; 94760; 97161; 99231; 99285; 99291; G0480; U0003; J1815; J2270; A9270-GY